=== PATIENT | female | born 1990 | race Caucasian/White ===

== ENCOUNTER 2016-05-20 20:33 | Emergency (ER) | payer BC ==
[~2016-05-20] VITALS: Ht 170.2 cm; Wt 64.1 kg
[2016-05-20 20:35] VITALS: BP 112/85; PULSE 92; RESP 17; TEMP 98.7; O2SAT 100
[2016-05-20 20:49] LABS: BLOOD, URINE LARGE (NEG); GLUCOSE,URINE 100 mg/dL (NEG); KETONE, URINE NEG (NEG)
[2016-05-20 21:06] LABS: NITRITE,URINE POS (NEG); URINE COLOR ORANGE (YELLW/STRAW)
[2016-05-20 21:07] LABS: BACTERIA, URINE OCC /hpf; COMMENT (UR) CULTURE INDICATED; CULTURE IF INDICATED CULTURE INDICATED; SQUAMOUS EPITHELIAL CELL URINE 0-5 /hpf (0-5); WBC, URINE 0-2 /hpf (0-5)
[2016-05-20] MEDS ORDERED: SODIUM CHLOR 0.9% 1000 ML INJ 1,000 ML IV SCH (22:13)
[2016-05-20] MEDS ORDERED: ONDANSETRON HCL 4 MG/2 ML VIAL IVP ONE (22:15)
[2016-05-20] MEDS ORDERED: KETOROLAC TROMETHAMINE 30 MG/ML (IVP) VIAL IVP ONE (22:15)
[2016-05-20] MEDS ORDERED: SODIUM CHLORIDE 0.9% FLUSH 5 ML FLUSH IVF PRN (22:15)
--- NOTE | 2016-05-20 22:20 | PD ---
HPI . Abdominal pain Chief Complaint: Abdominal Pain Time Seen by Provider: 22:06 Travel History International Travel<30 days: No Contact w/Intl Traveler<30days: No Traveled to known affect area: No History of Present Illness HPI Patient presents with a three-hour history of abdominal pain. It is associated with nausea and vomiting. No diarrhea. No fever. No urinary tract symptoms. She reports a brown vaginal discharge. No dyspareunia. I told patient that I was going to need to do a exam. She then reported that she was bleeding. She states that it is time for her usual menstrual cycle. PFSH Past Medical History Bipolar Disorder: Yes Anxiety: Yes Depression: Yes Tetanus Vaccination: Unknown ?: Unknown LMP: "end of March" Dilation and Curettage (D&C): Yes Past Surgical History Gynecologic Surgery: Yes (leep precedure) Social History Alcohol Use: Yes (occ) Tobacco Use: Yes (1/2ppd) Allergies-Medications (Allergen,Severity, Reaction): Coded Allergies: Risperdal (Verified Allergy, Severe, Swelling, 05/20/16) Reported Meds & Prescriptions Reported Meds & Active Scripts Active Reported Ranitidine (Ranitidine HCl) 150 Mg Tab 150 Mg PO DAILY Lamictal (Lamotrigine) 150 Mg Tab 150 Mg PO BID Clonazepam 0.5 Mg Tab 0.5 Mg PO BID PRN Trazodone (Trazodone HCl) 100 Mg Tab 100 Mg PO HS Buspirone (Buspirone HCl) 15 Mg Tab 15 Mg PO BID Abilify (Aripiprazole) 15 Mg Tab 15 Mg PO DAILY Review of Systems Except as stated in HPI: all other systems reviewed are Neg General / Constitutional: No: Fever, Chills Gastrointestinal: Positive: Nausea, Vomiting, Abdominal Pain, No: Diarrhea Genitourinary: Positive: Dysmenorrhea, Vaginal Bleeding, No: Urgency, Frequency, Dysuria, Dyspareunia Physical Exam Narrative GENERAL: Patient is awake and alert and in no acute distress. SKIN: Warm and dry. HEAD: Atraumatic. Normocephalic. EYES: Pupils equal and round. ENT: No nasal bleeding or discharge. Mucous membranes pink and moist. NECK: Trachea midline. CARDIOVASCULAR: Regular rate and rhythm. RESPIRATORY: No accessory muscle use. GASTROINTESTINAL: Abdomen soft. Suprapubic tenderness. No guarding or rebound. Nondistended. MUSCULOSKELETAL: No obvious deformities. No edema. NEUROLOGICAL: Awake and alert. No obvious cranial nerve deficits. Motor grossly within normal limits. Normal speech. PSYCHIATRIC: Appropriate mood and affect; insight and judgment normal. Data Data Last Documented VS Vital Signs Date Time Temp Pulse Resp B/P Pulse Ox O2 Delivery O2 Flow Rate FiO2 05/20/16 23:20 65 16 96/62 99 Room Air 05/20/16 20:35 98.7 Orders Urinalysis - C+S If Indicated (05/20/16 20:40) Ed Urine Pregnancytest Poc (05/20/16 20:40) Urine Culture (05/20/16 20:45) Basic Metabolic Panel (Bmp) (05/20/16 22:13) Complete Blood Count With Diff (05/20/16 22:13) Iv Access Insert/Monitor (05/20/16 22:13) Ondansetron Inj (Zofran Inj) (05/20/16 22:15) Sodium Chlor 0.9% 1000 Ml Inj (Ns 1000 M (05/20/16 22:13) Sodium Chloride 0.9% Flush (Ns Flush) (05/20/16 22:15) Ketorolac Inj (Toradol Inj) (05/20/16 22:15) Prochlorperazine Inj (Compazine Inj) (05/20/16 23:15) Diphenhydramine Inj (Benadryl Inj) (05/20/16 23:15) Labs Laboratory Tests Test 05/20/16 05/20/16 20:45 22:25 Urine Color ORANGE Urine Turbidity SLIGHT Urine pH 6.0 Urine Specific [place] 1.025 Urine Protein 30 mg/dL Urine Glucose (UA) 100 mg/dL Urine Ketones NEG mg/dL Urine Occult Blood LARGE Urine Nitrite POS Urine Bilirubin NEG Urine Leukocyte Esterase NEG Urine RBC 10-14 /hpf Urine WBC 0-2 /hpf Urine Squamous Epithelial 0-5 /hpf Cells Urine Bacteria OCC /hpf Microscopic Urinalysis Comment CULTURE INDICATED White Blood Count 6.5 TH/MM3 Red Blood Count 3.93 MIL/MM3 Hemoglobin 12.6 GM/DL Hematocrit 37.2 % Mean Corpuscular Volume 94.4 FL Mean Corpuscular Hemoglobin 32.1 PG Mean Corpuscular Hemoglobin 34.0 % Concent Red Cell Distribution Width 11.7 % Platelet Count 255 TH/MM3 Mean Platelet Volume 7.1 FL Neutrophils (%) (Auto) 62.7 % Lymphocytes (%) (Auto) 29.2 % Monocytes (%) (Auto) 7.6 % Eosinophils (%) (Auto) 0.1 % Basophils (%) (Auto) 0.4 % Neutrophils # (Auto) 4.1 TH/MM3 Lymphocytes # (Auto) 1.9 TH/MM3 Monocytes # (Auto) 0.5 TH/MM3 Eosinophils # (Auto) 0.0 TH/MM3 Basophils # (Auto) 0.0 TH/MM3 CBC Comment DIFF FINAL Differential Comment Sodium Level 143 MEQ/L Potassium Level 4.0 MEQ/L Chloride Level 106 MEQ/L Carbon Dioxide Level 31.3 MEQ/L Anion Gap 6 MEQ/L Blood Urea Nitrogen 10 MG/DL Creatinine 0.80 MG/DL Estimat Glomerular Filtration 86 ML/MIN Rate Random Glucose 87 MG/DL Calcium Level 8.7 MG/DL MDM Medical Decision Making Medical Screen Exam Complete: Yes Emergency Medical Condition: Yes Differential Diagnosis Differential diagnosis of pelvic pain includes but is not limited to UTI, PID, ectopic , spontaneous AB, constipation, viral illness Narrative Course Patient presents with a three-hour history of abdominal pain with nausea and vomiting. The "brown vaginal discharge" is probably actually menstrual blood. She states that it is time for her menstrual cycle. I suspect that her symptoms are due to dysmenorrhea. CBC is normal. Chemistries are normal. UA shows nitrite and occasional bacteria. Urine test is negative. Patient states that she still feels nauseous. Patient's nausea is resolved post Compazine. Diagnosis Primary Impression: Pelvic pain Additional Impressions: Dysmenorrhea UTI (urinary tract infection) Qualified Code: N30.00 - Acute cystitis without hematuria Patient Instructions: General Instructions, Interstitial Cystitis (ED) Med/Other Pt SpecificInfo: Prescription(s) given Scripts Tramadol (Ultram)50 Mg Tab50 Mg PO Q4H PRN (PAIN) #12 TAB Ref 0 Prov:June Stevens MD 05/20/16 Ibuprofen 800 Mg Bft144 Mg PO Q8H PRN (pain) #15 TAB Ref 0 Prov:June Stevens MD 05/20/16 Sulfamethoxazole-Trimethoprim (Bactrim DS)800-160 Mg Tab1 Tab PO BID #14 TAB Ref 0 Prov:June Stevens MD 05/20/16 Disposition: 01 DISCHARGE HOME Condition: Stable June Stevens MD May 20, 2016 22:19
[2016-05-20 22:33] LABS: AUTOMATED NEUTROPHIL # 4.1 TH/MM3 (1.8-7.7); BASOPHIL % 0.4 % (0.0-2.0); EOSINOPHIL % 0.1 % (0.0-4.0); HEMATOCRIT 37.2 % (35.0-46.0); HEMO FLAGS DIFF FINAL; LYMPH % 29.2 % (9.0-44.0); LYMPHOCYTE # 1.9 TH/MM3 (1.0-4.8); MEAN CELL VOLUME 94.4 FL (80.0-100.0); MEAN CORPUSCULAR HEMOGLOBIN 32.1 PG (27.0-34.0); MONO % 7.6 % (0.0-8.0); NEUT % 62.7 % (16.0-70.0); PLATELET COUNT 255 TH/MM3 (150-450); RED BLOOD COUNT 3.93 MIL/MM3 (4.00-5.30); RED CELL DISTRIBUTION WIDTH 11.7 % (11.6-17.2); WHITE BLOOD COUNT 6.5 TH/MM3 (4.0-11.0)
[2016-05-20 22:46] LABS: BICARBONATE 31.3 MEQ/L (21.0-32.0)
[2016-05-20] MEDS ORDERED: LAMO150 PO (22:58)
[2016-05-20] MEDS ORDERED: TRAZ100T4 PO (22:58)
[2016-05-20] MEDS ORDERED: ABIL15TA2 PO (22:58)
[2016-05-20] MEDS ORDERED: BUSP15TA PO (22:58)
[2016-05-20] MEDS ORDERED: CLON0.5T PO (22:58)
[2016-05-20] MEDS ORDERED: RANI150T PO (22:58)
[2016-05-20] MEDS ORDERED: PROCHLORPERAZINE INJ 10 MG/2 ML VIAL IVS ONE (23:15)
[2016-05-20] MEDS ORDERED: diphenhydrAMINE HCL 50 MG/ML VIAL IV PUSH ONE (23:15)
[2016-05-20 23:20] VITALS: BP_SYST 103; BP_SYST 96; BP_DIAS 59; BP_DIAS 62; PULSE 65; PULSE 67; RESP 16; O2SAT 98; O2SAT 99
[2016-05-20 23:36] VITALS: RESP 16
[2016-05-20] MEDS ORDERED: BACT800T5 PO (23:38)
[2016-05-20] MEDS ORDERED: ULTR50TA5 PO (23:38)
[2016-05-20] MEDS ORDERED: IBUP800T23 PO (23:38)
== END 2016-05-21 00:24 | disposition home or self-care (01) ==
LOC: PHED 20:33
DX: R10.2 Pelvic and perineal pain (principal); N94.6 Dysmenorrhea, unspecified; N39.0 Urinary tract infection, site not specified; R11.2 Nausea with vomiting, unspecified; N89.8 Other specified noninflammatory disorders of vagina; F17.210 Nicotine dependence, cigarettes, uncomplicated
CPT/HCPCS: 80048; 81001; 84703; 85025; 87086; 96361; 96374; 96375; 99284; J0780; J1200; J1885; J2405; J7030

== ENCOUNTER 2016-09-20 14:47 | Inpatient (IN) | payer BC ==
[~2016-09-20] VITALS: Ht 170.2 cm; Wt 73.7 kg
[~2016-09-20 14:47] MED LIST: ABIL15TA2 PO; BACT800T5 PO; BUSP15TA PO; CLON0.5T PO; IBUP800T23 PO; LAMO150 PO; RANI150T PO; TRAZ100T4 PO; ULTR50TA5 PO
[2016-09-20 14:48] VITALS: BP 130/78; PULSE 102; RESP 20; TEMP 97.9; O2SAT 99
--- NOTE | 2016-09-20 15:31 | PD ---
HPI Chief Complaint: Depression Time Seen by Provider: 15:20 Travel History International Travel<30 days: No Contact w/Intl Traveler<30days: No Traveled to known affect area: No History of Present Illness HPI This is a 25-year-old female who presents voluntarily requesting psychiatric evaluation. She reports a history of bipolar disorder, depression, anxiety, OCD. For the past few weeks she has been feeling increasingly depressed. Symptoms were worse today while she was at work. She called her psychiatrist office, was unable to obtain an appointment for 2 days and was encouraged to come here if symptoms were severe. She reports that the only new life changing event has been a new job that she started 3 weeks ago. She denies any suicidal or homicidal ideation. Denies any hallucinations. She is currently prescribed Klonopin, Lexapro, Abilify and BuSpar which she has been using as prescribed. Denies any drug or alcohol use. She has no medical complaints at this time. PFSH Past Medical History Bipolar Disorder: Yes Anxiety: Yes Depression: Yes ?: Not LMP: 2 WEEKS AGO Dilation and Curettage (D&C): Yes Past Surgical History Gynecologic Surgery: Yes (leep precedure) Social History Alcohol Use: Yes (occ) Tobacco Use: Yes (12ppd) Allergies-Medications (Allergen,Severity, Reaction): Coded Allergies: Risperdal (Verified Allergy, Severe, Swelling, 05/20/16) Reported Meds & Prescriptions Reported Meds & Active Scripts Active Ibuprofen 800 Mg Tab 800 Mg PO Q8H PRN Reported Lexapro (Escitalopram Oxalate) 20 Mg Tab 20 Mg PO DAILY Ranitidine (Ranitidine HCl) 150 Mg Tab 150 Mg PO DAILY Lamictal (Lamotrigine) 150 Mg Tab 150 Mg PO BID Clonazepam 0.5 Mg Tab 0.5 Mg PO BID PRN Buspirone (Buspirone HCl) 15 Mg Tab 15 Mg PO BID Abilify (Aripiprazole) 15 Mg Tab 15 Mg PO DAILY Review of Systems Except as stated in HPI: all other systems reviewed are Neg Physical Exam Narrative GENERAL: Pleasant well-developed well-nourished female in no acute distress. SKIN: Warm and dry. HEAD: Atraumatic. Normocephalic. EYES: Pupils equal and round. No scleral icterus. No injection or drainage. ENT: No nasal bleeding or discharge. Mucous membranes pink and moist. NECK: Trachea midline. No JVD. CARDIOVASCULAR: Regular rate and rhythm. No murmur appreciated. RESPIRATORY: No accessory muscle use. Clear to auscultation. Breath sounds equal bilaterally. GASTROINTESTINAL: Abdomen soft, non-tender, nondistended. Hepatic and splenic margins not palpable. MUSCULOSKELETAL: No obvious deformities. No clubbing. No cyanosis. No edema. NEUROLOGICAL: Awake and alert. No obvious cranial nerve deficits. Motor grossly within normal limits. Normal speech. PSYCHIATRIC: Depressed mood. Insight and judgment are intact. Data Data Last Documented VS Vital Signs Date Time Temp Pulse Resp B/P Pulse Ox O2 Delivery O2 Flow Rate FiO2 09/20/16 16:05 96.4 89 18 118/79 98 09/20/16 14:48 Room Air Orders Psych Screen (09/20/16 15:20) Drug Screen, Random Urine (09/20/16 15:20) Ed Urine Pregnancytest Poc (09/20/16 15:55) Diet Regular Basic (09/20/16 Dinner) Labs Laboratory Tests Test 09/20/16 15:40 Urine Opiates Screen NEG Urine Barbiturates Screen NEG Urine Amphetamines Screen NEG Urine Benzodiazepines Screen NEG Urine Cocaine Screen NEG Urine Cannabinoids Screen NEG MDM Medical Decision Making Medical Screen Exam Complete: Yes Emergency Medical Condition: Yes Medical Record Reviewed: Yes Differential Diagnosis Major depressive disorder, adjustment reaction, depressive disorder not otherwise specified, acute psychosis, substance induced mood disorder Narrative Course 25-year-old female presents with increasing depression over the past few weeks. She denies any suicidal or homicidal ideation. Mental health screening discussed with the patient. Psychiatric screen ordered. Urine drug screen, urine test negative. The patient is medically cleared for psychiatric disposition. Diagnosis Primary Impression: Depression Qualified Code: F32.9 - Depression, unspecified depression type Tod Ocampo September 20, 2016 15:31 Tod Ocampo September 20, 2016 15:31
[2016-09-20 15:58] LABS: AMPHETAMINE, URINE NEG (NEG); BARBITURATES, URINE NEG (NEG); COCAINE, URINE NEG (NEG)
[2016-09-20 16:05] VITALS: BP 118/79; PULSE 89; RESP 18; TEMP 96.4; O2SAT 98
[2016-09-20] MEDS ORDERED: LEXA20TA PO (16:41)
[2016-09-20] MEDS ORDERED: clonazePAM 0.5 MG TAB PO ONE (17:45)
[2016-09-20] MEDS: ARIPiprazole 15 MG TAB PO SCH (18:45)
[2016-09-20] MEDS ORDERED: PILL SPLITTER OTHER PRN (19:00)
[2016-09-20] MEDS: ACETAMINOPHEN 500 MG CPLT PO PRN (20:32)
[2016-09-20] MEDS: busPIRone HCL 5 MG TAB PO SCH (21:00)
[2016-09-20] MEDS: lamoTRIgine 100 MG TAB PO SCH (21:00)
[2016-09-20 21:50] VITALS: BP 101/57; PULSE 77; RESP 16; TEMP 97; O2SAT 95
[2016-09-21 02:07] VITALS: BP 97/63; PULSE 103; RESP 16; TEMP 98.5; O2SAT 100
[2016-09-21 06:13] VITALS: BP 99/53; PULSE 79; RESP 17; TEMP 98.6; O2SAT 97
[2016-09-21] MEDS: busPIRone HCL 5 MG TAB PO SCH ×2 (09:00→21:00)
[2016-09-21] MEDS: ARIPiprazole 15 MG TAB PO SCH (09:00)
[2016-09-21] MEDS: lamoTRIgine 100 MG TAB PO SCH ×2 (09:00→21:23)
[2016-09-21 09:40] LABS: AUTOMATED NEUTROPHIL # 3.5 TH/MM3 (1.8-7.7); BASOPHIL % 0.2 % (0.0-2.0); HEMATOCRIT 36.7 % (35.0-46.0); HEMO FLAGS DIFF FINAL; LYMPH % 26.4 % (9.0-44.0); LYMPHOCYTE # 1.4 TH/MM3 (1.0-4.8); MEAN CELL VOLUME 94.2 FL (80.0-100.0); MEAN CORPUSCULAR HEMOGLOBIN 31.5 PG (27.0-34.0); MEAN CORPUSCULAR HGB CONC 33.4 % (32.0-36.0); MONO % 9.2 % (0.0-8.0); NEUT % 64.2 % (16.0-70.0); PLATELET COUNT 181 TH/MM3 (150-450); RED CELL DISTRIBUTION WIDTH 12.3 % (11.6-17.2); WHITE BLOOD COUNT 5.4 TH/MM3 (4.0-11.0)
[2016-09-21 09:51] LABS: BACTERIA, URINE RARE /hpf; BLOOD, URINE NEG (NEG); COMMENT (UR) CULT NOT INDICATED; CULTURE IF INDICATED CULT NOT INDICATED; GLUCOSE,URINE NEG (NEG); KETONE, URINE NEG (NEG); NITRITE,URINE NEG (NEG); SQUAMOUS EPITHELIAL CELL URINE <1 /hpf (0-5); URINE COLOR LIGHT-YELLOW (YELLW/STRAW)
[2016-09-21 09:56] LABS: ALT (GPT) 17 U/L (10-53); ANION GAP 6 MEQ/L (5-15); AST (GOT) 14 U/L (15-37); BICARBONATE 29.6 MEQ/L (21.0-32.0); BLOOD UREA NITROGEN 10 MG/DL (7-18); CHLORIDE 105 MEQ/L (98-107); GLOMERULAR FILTRATION RATE 87 ML/MIN (>89); POTASSIUM 4.5 MEQ/L (3.5-5.1); SODIUM (NA) 141 MEQ/L (136-145)
[2016-09-21 09:59] LABS: ALKALINE PHOSPHATASE 74 U/L (45-117); TOTAL BILIRUBIN ADULT 0.5 MG/DL (0.2-1.0)
[2016-09-21] MEDS ORDERED: MAGNESIUM HYDROXIDE SUSP 30 ML CUP PO PRN (10:45)
[2016-09-21] MEDS ORDERED: BENZTROPINE MESYLATE 2 MG/2 ML VIAL IM PRN (10:45)
[2016-09-21] MEDS ORDERED: BENZTROPINE MESYLATE 1 MG TAB PO PRN (10:45)
[2016-09-21] MEDS ORDERED: ALUMINUM/MAGNESIUM/SIMETH 30 ML CUP PO PRN (10:45)
[2016-09-21 11:17] VITALS: BP 99/53; TEMP 98.6
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
[2016-09-21 14:19] VITALS: BP 93/61; PULSE 73; RESP 18; TEMP 98.6; O2SAT 99
[2016-09-21 18:00] VITALS: BP 103/57; PULSE 82; RESP 18; TEMP 98; O2SAT 97
[2016-09-21] MEDS: diphenhydrAMINE HCL 50 MG CAP PO PRN (21:23)
[2016-09-22 06:25] VITALS: BP 84/53; PULSE 86; RESP 18; TEMP 98.5; O2SAT 99
[2016-09-22] MEDS: busPIRone HCL 5 MG TAB PO SCH ×2 (08:52→20:54)
[2016-09-22] MEDS: FAMOTIDINE 20 MG TAB PO SCH ×2 (08:53→20:54)
[2016-09-22] MEDS: lamoTRIgine 100 MG TAB PO SCH ×2 (08:53→20:54)
[2016-09-22] MEDS: ESCITALOPRAM OXALATE 20 MG TAB PO SCH (08:53)
[2016-09-22] MEDS ORDERED: REMOVE OLD PATCH T-DERMAL SCH (09:00)
[2016-09-22] MEDS ORDERED: NICOTINE 21 MG/24 HR PATCH T-DERMAL SCH (09:00)
[2016-09-22 11:21] LABS: LDL CHOLESTEROL 56 MG/DL (0-99)
[2016-09-22 11:51] LABS: HEMOGLOBIN A1a 1.6 %; HEMOGLOBIN A1b 0.7 %; HEMOGLOBIN Ao 85.2 %; HEMOGLOBIN F 2.5 %; HEMOGLOBIN P3 3.1 %
[2016-09-22] MEDS: diphenhydrAMINE HCL 50 MG CAP PO PRN ×2 (12:15→20:54)
--- NOTE | 2016-09-22 13:55 | HHI.PYPN ---
Subjective Remarks Patient reports her mood is not stable and she needs an increased dose of Abilify. She also reports she is anxious and would like to go up on the Lexapro and the BuSpar. As she is already at max dose of Lexapro, this physician continued it at the present dose. However her BuSpar was increased per her request. Review of Systems Except as stated in HPI: all other systems reviewed are Neg Objective Alert: Yes [place]: Person, Place, Date, Situation Mood: Anxious Affect: Euthymic, Restricted Memory Intact: Immediate, Recent, Remote Hallucinations: Other Delusions: Yes Delusion Type: Other Suicidal: Ideation Homicidal: Ideation Insight/Judgment Impaired Labs Test 09/22/16 10:20 Hemoglobin A1c 4.7 % Triglycerides Level 127 MG/DL Cholesterol Level 156 MG/DL LDL Cholesterol 56 MG/DL HDL Cholesterol 75.0 MG/DL Cholesterol/HDL Ratio 2.08 RATIO Vitals/IOs Vital Signs Date Time Temp Pulse Resp B/P Pulse Ox O2 Delivery O2 Flow Rate FiO2 09/22/16 06:25 98.5 86 18 84/53 99 09/21/16 06:13 Room Air Intake and Output 09/21/16 09/21/16 09/21/16 07:59 15:59 23:59 Intake Total 360 ml Balance 360 ml Assessment & Plan Problem List: (1) Bipolar depression ICD Code: F31.30 Assessment & Plan Estimated LOS: 3 days plan to make changes to medication starting today. If patient tolerates and does well on these medicines she can be discharged by Sunday. Justification for Cont. Inpt. Unstable at lower level of care at this point. Requires medication changes and evaluation for same. Nakul Panda MD September 22, 2016 13:55
[2016-09-22 17:25] VITALS: BP 102/53; PULSE 78; RESP 16; TEMP 97.7; O2SAT 100
[2016-09-22] MEDS: ACETAMINOPHEN 500 MG CPLT PO PRN (19:24)
[2016-09-23 05:58] VITALS: BP 117/57; PULSE 84; RESP 18; TEMP 97.4; O2SAT 98
[2016-09-23] MEDS: lamoTRIgine 100 MG TAB PO SCH ×2 (08:44→21:28)
[2016-09-23] MEDS: FAMOTIDINE 20 MG TAB PO SCH ×2 (08:44→21:33)
[2016-09-23] MEDS: busPIRone HCL 5 MG TAB PO SCH ×2 (08:47→21:30)
[2016-09-23] MEDS: ESCITALOPRAM OXALATE 20 MG TAB PO SCH (08:47)
[2016-09-23] MEDS: clonazePAM 0.5 MG TAB PO PRN (14:12)
--- NOTE | 2016-09-23 17:57 | HHI.PYPN ---
Subjective Remarks Pt seen and discussed with staff. She reports that she is tolerating increased dose of medications without side effects. She reports that mood is better today and lability has decreased. She reports depression has decreased. She is participating in groups. Objective Alert: Yes [place]: Person, Place, Date, Situation Mood: Calm Affect: Restricted Memory Intact: Immediate, Recent, Remote Hallucinations: Other Delusions: Yes Delusion Type: Other Suicidal: Ideation (denies) Homicidal: Ideation (denies) Insight/Judgment fair Vitals/IOs Vital Signs Date Time Temp Pulse Resp B/P Pulse Ox O2 Delivery O2 Flow Rate FiO2 09/23/16 05:58 97.4 84 18 117/57 98 09/21/16 06:13 Room Air Assessment & Plan Problem List: (1) Bipolar depression ICD Code: F31.30 Assessment & Plan Continue current tx plan. Estimated LOS: days Justification for Cont. Inpt. risk of decompensation. Eve Jimenez MD September 23, 2016 17:57
[2016-09-23 18:00] VITALS: BP 98/59; PULSE 73; RESP 18; TEMP 97.7; O2SAT 100
[2016-09-23] MEDS: diphenhydrAMINE HCL 50 MG CAP PO PRN (21:30)
[2016-09-24 05:11] VITALS: BP 104/58; PULSE 67; RESP 16; TEMP 98
[2016-09-24] MEDS: FAMOTIDINE 20 MG TAB PO SCH ×2 (09:18→21:14)
[2016-09-24] MEDS: lamoTRIgine 100 MG TAB PO SCH ×2 (09:18→21:14)
[2016-09-24] MEDS: ESCITALOPRAM OXALATE 20 MG TAB PO SCH (09:18)
[2016-09-24] MEDS: busPIRone HCL 5 MG TAB PO SCH ×2 (09:18→21:13)
--- NOTE | 2016-09-24 17:01 | HHI.PYPN ---
Subjective Remarks Pt seen and discussed with staff. She reports that mood is improving and she is sleeping well. Compliant with medications and tolerating without side effects. No SI/HI. Objective Alert: Yes [place]: Person, Place, Date, Situation Mood: Calm Affect: Restricted Memory Intact: Immediate, Recent, Remote Hallucinations: Other Delusions: Yes Delusion Type: Other Suicidal: Ideation (denies) Homicidal: Ideation (denies) Insight/Judgment poor Vitals/IOs Vital Signs Date Time Temp Pulse Resp B/P Pulse Ox O2 Delivery O2 Flow Rate FiO2 09/24/16 05:11 98.0 67 16 104/58 09/23/16 18:00 100 09/21/16 06:13 Room Air Intake and Output 09/23/16 09/23/16 09/24/16 08:00 16:00 00:00 Intake Total 600 ml 240 ml Balance 600 ml 240 ml Assessment & Plan Problem List: (1) Bipolar depression ICD Code: F31.30 Assessment & Plan Continue current tx plan Estimated LOS: days Justification for Cont. Inpt. risk of decompensation Eve Jimenez MD September 24, 2016 17:01
[2016-09-24] MEDS: diphenhydrAMINE HCL 50 MG CAP PO PRN (21:14)
[2016-09-25] MEDS: clonazePAM 0.5 MG TAB PO PRN (03:18)
[2016-09-25 05:13] VITALS: BP 96/51; PULSE 67; RESP 18; TEMP 98.4; O2SAT 98
[2016-09-25] MEDS: lamoTRIgine 100 MG TAB PO SCH (09:13)
[2016-09-25] MEDS: ESCITALOPRAM OXALATE 20 MG TAB PO SCH (09:13)
[2016-09-25] MEDS: busPIRone HCL 5 MG TAB PO SCH (09:13)
[2016-09-25] MEDS: FAMOTIDINE 20 MG TAB PO SCH (09:13)
[2016-09-25] MEDS ORDERED: BUSP10TA PO (12:49)
[2016-09-25] MEDS ORDERED: ABIL30TA2 PO (12:49)
--- NOTE | 2016-09-25 12:49 | HHI.DS ---
Psychiatry Discharge Summary Inpatient Psychiatric care?: Yes Advance Directive: No Reason Not Provided: Due to Patient Condition Mental Health AdvanceDirective: No Health Care Proxy: No Admission Admission Date September 21, 2016 at 10:32 Admission Diagnosis: (1) Bipolar depression ICD Code: F31.30 Brief History Ms. Lafleur is a 25-year-old female with a history of bipolar disorder and anxiety who presents on a voluntary basis for psychiatric evaluation. Reviewing the electronic medical record, I see no prior psychiatric contact within our system. The patient seen and examined. Chart reviewed. Case discussed with nursing staff who reports that the patient has been acting out in a somewhat personality disordered fashion since presenting to the psychiatric emergency room. For example, the nurse notes that the patient reported to staff that she had endeavored to smother herself with a pillow while she was in the psychiatric emergency room, but she was under constant observation both directly and via video camera I am told and there was no evidence that she had done any such thing. Likewise, the patient at a later point apparently put her finger down her throat in order to induce vomiting for unclear reasons. On my examination this morning, cluster B personality traits are noted. The patient complains of worsening depression over the last month or so without clear trigger. She says that yesterday "out of the blue" she had acute worsening of her depression and the onset of tearfulness. She became "scared something bad was going to happen." She began to entertain suicidal thoughts. She tried to contact her outpatient psychiatrist, but was told that she could not be seen until Sunday and so decided it was the most prudent course of action to come to the emergency room instead. She endorses ongoing vague suicidal ideation. She endorses feelings of increased impulsiveness. Sleep is reportedly fair, although it is disturbed at times by periods of intense panic. I can elicit no hypomanic or manic symptoms. She endorses a history of indistinct "voices" and also reportedly felt that people were following her in the past, but she denies audiovisual hallucinations at this time and I can elicit no current delusional beliefs. The remainder of the psychiatric ROS is negative. The patient is requesting psychiatric admission for stabilization. Tobacco Use In Past 30 Days: 4 or Less Cigarettes/Day Alcohol Use: Never Hospital Course The patient was admitted to a locked, inpatient psychiatric unit. Appropriate precautions were in place throughout patient's hospital stay. Patient was seen and examined daily on the unit by psychiatry and also visited by counselor. Medications were adjusted. Patient tolerated medication changes well without side effects. Patient had improvement in her presenting psychiatric symptomatology. There was no evidence of any suicidality or homicidality on the inpatient unit. Patient remained in good behavioral control and was compliant with medications. Charting indicates that the patient has been sleeping and eating well. On the day of discharge: Patient seen and examined with nursing staff. Chart reviewed. Case discussed with nurse who reports that the patient is "doing great" and has been no behavioral problem on the unit. On my examination today, the patient is in good spirits. She denies any suicidal or homicidal ideation, intent or plan. She feels that her mood is stabilized and I can elicit no ongoing depressive or hypomanic/manic symptoms at this time. She denies any audiovisual hallucinations and I can elicit no delusional beliefs. She denies side effects from medications. She has no physical complaints. Weighing the acute, chronic, and protective factors and based on the available evidence, I commutator inspector to a reasonable degree of medical certainty that the patient is at low imminent risk of harm to self or others from a mental illness as defined under the Gutierrez act and her level of function is adequate for outpatient care. Consequently, the patient does not meet criteria for involuntary psychiatric hospitalization at this time. Given that she is requesting discharge from the inpatient psychiatric unit today and given that she does not meet criteria for involuntary psychiatric hospitalization, I must order her discharge from the inpatient psychiatric unit today. I have recommended that the patient follow-up with outpatient psychiatry. Patient is also to follow-up with primary care. I counseled the patient regarding warning signs for need to return to the psychiatric emergency room as part of a general safety plan. I provided prescriptions for patient's BuSpar and Abilify, and the patient reports that otherwise she has an adequate supply of her psychotropic and other medications. Results Blood Pressure 96 / 51 Vital Signs Date Time Temp Pulse Resp B/P Pulse Ox O2 Delivery O2 Flow Rate FiO2 09/25/16 05:13 98.4 67 18 96/51 98 Laboratory Results Test 09/22/16 10:20 Hemoglobin A1c 4.7 % (4.3-6.0) Triglycerides Level 127 MG/DL (42-150) Cholesterol Level 156 MG/DL (120-200) LDL Cholesterol 56 MG/DL (0-99) HDL Cholesterol 75.0 MG/DL (40.0-60.0) Summary of Procedures None done Imaging None done Pending results at discharge: No Medications # of Antipsychotic meds at D/C: 1 Approp Antipsych med options 1 - Minimum of three failed multiple trials of monotherapy. 2 - Documented plan to taper to monotherapy due to previous use of multiple meds OR cross-taper in progress at D/C. 3 - Documentation of augmentation of Clozapine. 4 - Justification other than those listed in allowable values 1-3, document here : Discharge Discharge Date: September 25, 2016 Discharge Diagnosis: (1) Bipolar disorder Diagnosis: Principal ICD Code: F31.9 Also, cluster B personality traits, chronic. GAF on discharge is 60. Mental Status Exam at Disch Patient is casually dressed. She is well groomed and certainly maintaining basic hygiene. She is awake and alert and oriented 3. No abnormal motor movements noted. Speech is within normal limits for rate, tone and volume. Language and fund of knowledge seemed average. Mood is good and affect is full and reactive. Thought process linear. No loosening of associations. No evident delusional material. Denies audiovisual hallucinations. Denies suicidal or homicidal ideation, intent or plan. Insight and judgment are fair. Pt Condition on Discharge: Stable Discharge Disposition: Discharge Home Discharge Instructions Diet Instructions: As Tolerated, No Restrictions Activities you can perform: Weight Bearing as Titi Scheduled Appointment: as per counselor's notes New Medications: Aripiprazole (Abilify) 30 Mg Tab 30 MG PO DAILY Mental Health Days 15 Ref 1 TAB Buspirone (Buspirone) 10 Mg Tab 20 MG PO BID Mental Health Days 15 Ref 1 TAB Continued Medications: Clonazepam (Clonazepam) 0.5 Mg Tab 0.5 MG PO BID PRN ANXIETY #60 Ref 0 TAB Escitalopram (Lexapro) 20 Mg Tab 20 MG PO DAILY #30 Ref 0 TAB Ibuprofen (Ibuprofen) 800 Mg Tab 800 MG PO Q8H PRN pain #15 Ref 0 TAB Lamotrigine (Lamictal) 150 Mg Tab 150 MG PO BID Control Seizures #60 Ref 0 TAB Ranitidine (Ranitidine) 150 Mg Tab 150 MG PO DAILY Heartburn Management #30 Ref 0 TAB Discontinued Medications: Aripiprazole (Abilify) 15 Mg Tab 15 MG PO DAILY #30 Ref 0 TAB Buspirone (Buspirone) 15 Mg Tab 15 MG PO BID Anxiety Ref 0 TAB Discharge Time <= 30 minutes Discharge/Advance Care Plan Health Problems: (1) Bipolar depression Goals to promote your health * To prevent worsening of your condition and complications * To maintain your health at the optimal level Directions to meet your goals Take your medications as prescribed Follow your dietary instruction Follow activity as directed Keep your appointments as scheduled Take your immunizations and boosters as scheduled If your symptoms worsen call your PCP, if no PCP go to Urgent Care Center or Emergency Room For 20/11 questions related to your inpatient stay or results of tests pending at discharge, please contact Dr. Samson Pinedo at Smoking is Dangerous to Your Health. Avoid second hand smoking Problem Qualifiers (1) Bipolar disorder: Qualified Code: F31.75 - Bipolar disorder, in partial remission, most recent episode depressed Samson Pinedo MD September 25, 2016 12:49
== END 2016-09-25 14:50 | disposition home or self-care (01) | DRG 885 ==
LOC: NEPJ 14:47 → NEDA 09-21 10:32 → H260 09-21 11:02
PROVIDERS: ADMIT Psychiatry & Neurology Psychiatry; ATTEND Psychiatry & Neurology Psychiatry
DX: F31.9 Bipolar disorder, unspecified (principal); F60.89 Other specific personality disorders; Z81.8 Family history of other mental and behavioral disorders; F17.210 Nicotine dependence, cigarettes, uncomplicated
CPT/HCPCS: 80053; 80061; 80307; 81001; 83036; 84703; 85025; 99285; Q0163

== ENCOUNTER 2016-10-02 23:50 | Emergency (ER) | payer BC ==
[~2016-10-02] VITALS: Ht 172.7 cm; Wt 76.0 kg
[~2016-10-02 23:50] MED LIST changes: -ABIL15TA2 PO; +ABIL30TA2 PO; -BACT800T5 PO; +BUSP10TA PO; -BUSP15TA PO; +LEXA20TA PO; -TRAZ100T4 PO; -ULTR50TA5 PO
[2016-10-02 23:53] VITALS: BP 137/73; PULSE 98; RESP 16; TEMP 97.9; O2SAT 100
--- NOTE | 2016-10-03 00:24 | PD ---
HPI Chief Complaint: Psychiatric Symptoms Time Seen by Provider: 00:20 Travel History International Travel<30 days: No Contact w/Intl Traveler<30days: No Traveled to known affect area: No History of Present Illness HPI 26-year-old female that presents to the ED for evaluation of psychiatric evaluation. Patient comes in voluntarily. Patient has a history of depression and psychiatric illness. Patient was just released from the hospital last week. Patient reports that she had an argument with her significant other and her medications were recently changed that she feels that she needs help. She denies any homicidal systolic ideation. No drugs or alcohol. No medical issues. Patient comes here mainly to get help psychiatrically. PFSH Past Medical History Bipolar Disorder: Yes Anxiety: No Depression: Yes Endocrine: No Genitourinary: No Immune Disorder: No Musculoskeletal: No Neurologic: No Psychiatric: Yes (History of BiPolar per pt) Respiratory: No Tetanus Vaccination: Unknown Influenza Vaccination: No ?: Not LMP: 5-16-17 Dilation and Curettage (D&C): Yes Past Surgical History Surgical History: No Previous Surgery Gynecologic Surgery: Yes (leep precedure) Social History Alcohol Use: No Tobacco Use: Yes Substance Use: No Allergies-Medications (Allergen,Severity, Reaction): Coded Allergies: Risperdal (Verified Allergy, Severe, Swelling, 10/02/16) Reported Meds & Prescriptions Reported Meds & Active Scripts Active Buspirone (Buspirone HCl) 10 Mg Tab 20 Mg PO BID 15 Days Abilify (Aripiprazole) 30 Mg Tab 30 Mg PO DAILY 15 Days Ibuprofen 800 Mg Tab 800 Mg PO Q8H PRN Reported Lexapro (Escitalopram Oxalate) 20 Mg Tab 20 Mg PO DAILY Ranitidine (Ranitidine HCl) 150 Mg Tab 150 Mg PO DAILY Lamictal (Lamotrigine) 150 Mg Tab 150 Mg PO BID Clonazepam 0.5 Mg Tab 0.5 Mg PO BID PRN Review of Systems Except as stated in HPI: all other systems reviewed are Neg Physical Exam Narrative GENERAL: SKIN: Warm and dry. HEAD: Atraumatic. Normocephalic. EYES: Pupils equal and round. No scleral icterus. No injection or drainage. ENT: No nasal bleeding or discharge. Mucous membranes pink and moist. Tongue is midline. No uvula deviation. NECK: Trachea midline. No JVD. CARDIOVASCULAR: Regular rate and rhythm. No murmurs, S3, S4. RESPIRATORY: No accessory muscle use. Clear to auscultation. Breath sounds equal bilaterally. GASTROINTESTINAL: Abdomen soft, non-tender, nondistended. Hepatic and splenic margins not palpable. MUSCULOSKELETAL: Extremities without clubbing, cyanosis, or edema. No obvious deformities. NEUROLOGICAL: Awake and alert. No obvious cranial nerve deficits. Motor grossly within normal limits. Five out of 5 muscle strength in the arms and legs. Normal speech. PSYCHIATRIC: Appropriate mood and affect; insight and judgment normal. Data Data Last Documented VS Vital Signs Date Time Temp Pulse Resp B/P Pulse Ox O2 Delivery O2 Flow Rate FiO2 10/02/16 23:53 97.9 98 16 137/73 100 Orders Complete Blood Count With Diff (10/03/16 00:05) Comprehensive Metabolic Panel (10/03/16 00:05) Psych Screen (10/03/16 00:05) Drug Screen, Random Urine (10/03/16 00:05) Alcohol (Ethanol) (10/03/16 00:05) MDM Medical Decision Making Medical Screen Exam Complete: Yes Emergency Medical Condition: Yes Medical Record Reviewed: Yes Differential Diagnosis Depression versus suicidal ideation versus anxiety versus adjustment disorder versus mood disorder versus bipolar disorder versus schizophrenia versus paranoid disorder versus psychosis versus substance abuse versus alcohol abuse versus alcohol induced psychosis versus homicidality addition versus cutting versus personality disorder Narrative Course 26-year-old female that presents to the ED for evaluation of psych. Patient was properly examined and was found to have signs and symptoms consistent with appears to be psychiatric illness. No sign of acute medical distress. Patient his voluntarily. Labs were drawn. Patient was medically cleared. Okay to be seen by psych. Mental health screening was discussed with the patient. Diagnosis Primary Impression: Bipolar disorder Qualified Code: F31.31 - Bipolar affective disorder, currently depressed, mild Peyman Warner Oct 03, 2016 00:23
[2016-10-03] MEDS ORDERED: CYCL1TAB29 PO (00:29)
[2016-10-03 00:37] LABS: BASOPHIL % 0.2 % (0.0-2.0); HEMATOCRIT 35.6 % (35.0-46.0); HEMO FLAGS DIFF FINAL; LYMPH % 16.7 % (9.0-44.0); LYMPHOCYTE # 1.7 TH/MM3 (1.0-4.8); MEAN CELL VOLUME 92.7 FL (80.0-100.0); MEAN CORPUSCULAR HEMOGLOBIN 32.1 PG (27.0-34.0); MEAN CORPUSCULAR HGB CONC 34.6 % (32.0-36.0); MONO % 5.1 % (0.0-8.0); PLATELET COUNT 252 TH/MM3 (150-450); RED BLOOD COUNT 3.84 MIL/MM3 (4.00-5.30); RED CELL DISTRIBUTION WIDTH 12.8 % (11.6-17.2); WHITE BLOOD COUNT 10.3 TH/MM3 (4.0-11.0)
[2016-10-03 00:52] LABS: AMPHETAMINE, URINE NEG (NEG); BARBITURATES, URINE NEG (NEG); COCAINE, URINE NEG (NEG)
[2016-10-03 01:03] LABS: ALT (GPT) 18 U/L (10-53); ANION GAP 5 MEQ/L (5-15); AST (GOT) 16 U/L (15-37); BICARBONATE 28.5 MEQ/L (21.0-32.0); BLOOD UREA NITROGEN 11 MG/DL (7-18); CHLORIDE 106 MEQ/L (98-107); GLOMERULAR FILTRATION RATE 85 ML/MIN (>89); POTASSIUM 3.7 MEQ/L (3.5-5.1); SODIUM (NA) 139 MEQ/L (136-145)
[2016-10-03 01:06] LABS: ALKALINE PHOSPHATASE 79 U/L (45-117); TOTAL BILIRUBIN ADULT 0.4 MG/DL (0.2-1.0)
[2016-10-03 02:17] VITALS: BP 118/74; PULSE 78; RESP 20; TEMP 98.2; O2SAT 98
[2016-10-03 06:00] VITALS: BP 99/56; PULSE 77; RESP 18; O2SAT 97
[2016-10-03 10:19] VITALS: BP 104/57; PULSE 82; RESP 18; O2SAT 96
--- NOTE | 2016-10-03 13:33 | PD ---
History of Present Illness Chief Complaint: Psychiatric Symptoms Time Seen by Provider: 13:00 Travel History International Travel<30 Days: No Contact w/Intl Traveler<30days: No Known affected area: No Legal Status Legal Status: Voluntary History of Present Illness: History of Present Illness HPI 26-year-old female with hx of bipolar disorder and anxiety that presents to the ED on a voluntary basis for evaluation of psychiatric evaluation. Patient was released from the inpatient psychiatric unit at [facility] last week. She reports that she was involved in an argument with her fiancee and she began to fell like she was going to have a panic attack. She then drove herself to the hospital and is requesting admission . States " I don't think my medication is working". She did not contact her outpatient provider prior to coming to the Ed. reports medication compliance. Patient was monitored in J pod and did not present any behavioral concerns. There is no indication of any psychosis and no soni. There is no sucidal or homicdal ideation, intent or plan. She has not experienced any further panic attacks while in J pod. [facility] Past Medical History Bipolar Disorder: Yes Anxiety: No Depression: Yes Endocrine: No Genitourinary: No Immune Disorder: No Musculoskeletal: No Neurologic: No Psychiatric: Yes (History of BiPolar per pt) Respiratory: No Tetanus Vaccination: Unknown Influenza Vaccination: No ?: Not LMP: 5-16-17 Dilation and Curettage (D&C): Yes Past Surgical History Surgical History: No Previous Surgery Gynecologic Surgery: Yes (leep precedure) Psychiatric History Psychiatric History Hx Psychiatric Treatment: Patient reports she has been hospitalized in [facility] 3x. Last psychiatric hosp in [facility] last month Patient is currently seeing an PREPARATION ROOM WORKER from [facility] under the care of Dr. Leon. History of Inpatient Treatment: Yes Guns or firearms in home: No Social History Sing[place] female. Has no children. Lives with her jeramie. 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 Hx Alcohol Use: No Hx Tobacco Use: Yes Hx Substance Use: No Hx of Substance Use Treatment: No Family Psychiatric History Negative Allergies-Medications (Allergen,Severity, Reaction): Coded Allergies: Risperdal (Verified Allergy, Severe, Swelling, 10/03/16) Reported Meds & Prescriptions Reported Meds & Active Scripts Active Buspirone (Buspirone HCl) 10 Mg Tab 20 Mg PO BID 15 Days Abilify (Aripiprazole) 30 Mg Tab 30 Mg PO DAILY 15 Days Ibuprofen 800 Mg Tab 800 Mg PO Q8H PRN Reported Flexeril (Cyclobenzaprine HCl) 10 Mg Tab 10 Mg PO TID Lexapro (Escitalopram Oxalate) 20 Mg Tab 20 Mg PO DAILY Ranitidine (Ranitidine HCl) 150 Mg Tab 150 Mg PO DAILY Lamictal (Lamotrigine) 150 Mg Tab 150 Mg PO BID Clonazepam 0.5 Mg Tab 0.5 Mg PO BID PRN Review of Systems Except as stated in HPI: all other systems reviewed are Neg Exam Alert: Yes [place]: Person (ox4) Mood: Calm Affect: Tearful Speech: Clear, Logical Eye Contact: Normal Memory Intact: Comment (no impairmetn) Hallucinations: Other (negative) Delusions: No Suicidal: Ideation (neagtive) Homicidal: Ideation (negative) Insight/Judgement Fair. not impaired. MDM Medical Decision Making Medical Record Reviewed: Yes Assessment/Plan 26 year old female with hx of bipolar disorder and anxiety who presents to Ed after she experienced a panic attack. Patient at this time presents no criteria for inpatient treatment . I have encouraged her to follow up with her outpatient provider and to continue with current medication. Orders Complete Blood Count With Diff (10/03/16 00:05) Comprehensive Metabolic Panel (10/03/16 00:05) Psych Screen (10/03/16 00:05) Drug Screen, Random Urine (10/03/16 00:05) Alcohol (Ethanol) (10/03/16 00:05) Diet Regular Basic (10/03/16 Breakfast) Diet Regular Basic (10/03/16 Lunch) Results Vital Signs Date Time Temp Pulse Resp B/P Pulse Ox O2 Delivery O2 Flow Rate FiO2 10/03/16 10:19 82 18 104/57 96 Room Air 10/03/16 06:00 77 18 99/56 97 Room Air 10/03/16 02:17 98.2 78 20 118/74 98 Room Air 10/02/16 23:53 97.9 98 16 137/73 100 Laboratory Tests Test 10/03/16 00:15 White Blood Count 10.3 Red Blood Count 3.84 Hemoglobin 12.3 Hematocrit 35.6 Mean Corpuscular Volume 92.7 Mean Corpuscular Hemoglobin 32.1 Mean Corpuscular Hemoglobin 34.6 Concent Red Cell Distribution Width 12.8 Platelet Count 252 Mean Platelet Volume 8.0 Neutrophils (%) (Auto) 78.0 Lymphocytes (%) (Auto) 16.7 Monocytes (%) (Auto) 5.1 Eosinophils (%) (Auto) 0.0 Basophils (%) (Auto) 0.2 Neutrophils # (Auto) 8.0 Lymphocytes # (Auto) 1.7 Monocytes # (Auto) 0.5 Eosinophils # (Auto) 0.0 Basophils # (Auto) 0.0 CBC Comment DIFF FINAL Differential Comment Sodium Level 139 Potassium Level 3.7 Chloride Level 106 Carbon Dioxide Level 28.5 Anion Gap 5 Blood Urea Nitrogen 11 Creatinine 0.80 Estimat Glomerular Filtration 85 Rate Random Glucose 92 Calcium Level 9.0 Total Bilirubin 0.4 Aspartate Amino Transf 16 (AST/SGOT) Alanine Aminotransferase 18 (ALT/SGPT) Alkaline Phosphatase 79 Total Protein 7.1 Albumin 3.4 Urine Opiates Screen NEG Urine Barbiturates Screen NEG Urine Amphetamines Screen NEG Urine Benzodiazepines Screen NEG Urine Cocaine Screen NEG Urine Cannabinoids Screen NEG Ethyl Alcohol Level 4 Diagnosis Primary Impression: Bipolar disorder Psychiatrically Cleared: Yes Referrals: EDWINA LEON M.D. call for appointment Departure Forms: Tests/Procedures Patient Instructions: General Instructions, Bipolar Disorder (ED) Med/ Other Pt Specific Info: No Change to Meds Disposition: 01 DISCHARGE HOME Condition: Stable Problem Qualifiers Primary Impression: Bipolar disorder Qualified Code: F31.31 - Bipolar affective disorder, currently depressed, mild Brii Conner [facility] Oct 03, 2016 13:32
== END 2016-10-03 13:59 | disposition home or self-care (01) ==
LOC: NEPD 23:50 → NEPJ 10-03 13:59
DX: F31.31 Bipolar disorder, current episode depressed, mild (principal); Z79.899 Other long term (current) drug therapy
CPT/HCPCS: 80053; 80307; 85025; 99284

== ENCOUNTER 2016-12-27 15:21 | Inpatient (IN) | payer BC ==
[~2016-12-27] VITALS: Ht 170.2 cm; Wt 83.9 kg
[~2016-12-27 15:21] MED LIST changes: +CYCL1TAB29 PO
--- NOTE | 2016-12-27 15:27 | PD ---
Physical Exam Date Seen by Provider: Dec 27, 2016 Time Seen by Provider: 15:26 Narrative 26 yo female here for voluntary psych eval. here for suicidal ideation but no plan. No other medical issues. Depression. Taking meds. Vitals are stable in triage. Awaiting bed placement. Data Data Orders Orders Complete Blood Count With Diff (12/27/16 15:25) Comprehensive Metabolic Panel (12/27/16 15:25) Urinalysis - C+S If Indicated (12/27/16 15:25) Psych Screen (12/27/16 15:25) Drug Screen, Random Urine (12/27/16 15:25) Alcohol (Ethanol) (12/27/16 15:25) Salicylates (Aspirin) (12/27/16 15:25) Tylenol (Acetaminophen) (12/27/16 15:25) MDM Medical Record Reviewed: Yes Supervised Visit with HARPREET: No Peyman Warner Dec 27, 2016 15:27
[2016-12-27 15:30] VITALS: BP 135/84; PULSE 104; RESP 12; TEMP 98.6; O2SAT 98
[2016-12-27 16:24] LABS: AUTOMATED NEUTROPHIL # 3.3 TH/MM3 (1.8-7.7); BACTERIA, URINE RARE /hpf; BASOPHIL % 0.1 % (0.0-2.0); BLOOD, URINE NEG (NEG); COMMENT (UR) CULT NOT INDICATED; CULTURE IF INDICATED CULT NOT INDICATED; GLUCOSE,URINE NEG (NEG); HEMATOCRIT 38.1 % (35.0-46.0); HEMO FLAGS DIFF FINAL; KETONE, URINE NEG (NEG); LYMPH % 32.5 % (9.0-44.0); LYMPHOCYTE # 1.8 TH/MM3 (1.0-4.8); MEAN CORPUSCULAR HEMOGLOBIN 32.3 PG (27.0-34.0); MONO % 8.8 % (0.0-8.0); NEUT % 58.6 % (16.0-70.0); NITRITE,URINE NEG (NEG); PLATELET COUNT 251 TH/MM3 (150-450); RED BLOOD COUNT 4.01 MIL/MM3 (4.00-5.30); RED CELL DISTRIBUTION WIDTH 12.2 % (11.6-17.2); RENAL EPITHELIAL CELLS <1 /hpf; SQUAMOUS EPITHELIAL CELL URINE 1 /hpf (0-5); URINE COLOR YELLOW (YELLW/STRAW); WHITE BLOOD COUNT 5.7 TH/MM3 (4.0-11.0)
[2016-12-27 16:34] LABS: ANION GAP 10 MEQ/L (5-15)
[2016-12-27 16:37] LABS: ACETAMINOPHEN LESS THAN 2.0 MCG/ML (10.0-30.0); ALKALINE PHOSPHATASE 103 U/L (45-117); ALT (GPT) 17 U/L (10-53); AST (GOT) 13 U/L (15-37); BICARBONATE 26.5 MEQ/L (21.0-32.0); BLOOD UREA NITROGEN 9 MG/DL (7-18); CHLORIDE 105 MEQ/L (98-107); GLOMERULAR FILTRATION RATE 89 ML/MIN (>89); POTASSIUM 3.9 MEQ/L (3.5-5.1); SODIUM (NA) 141 MEQ/L (136-145); TOTAL BILIRUBIN ADULT 0.4 MG/DL (0.2-1.0)
[2016-12-27 16:38] LABS: ALCOHOL LESS THAN 3 MG/DL (0-5)
--- NOTE | 2016-12-27 16:52 | PD ---
HPI Chief Complaint: Psychiatric Symptoms Time Seen by Provider: 16:40 Travel History International Travel<30 days: No Contact w/Intl Traveler<30days: No Traveled to known affect area: No History of Present Illness HPI Patient is a 26-year-old female presenting to the emergency Department voluntarily for psychiatric evaluation. Patient states that she has been depressed for several months and today started experiencing suicidal ideations. She denies any previous suicide attempts. Patient states she has a history of bipolar disorder and her depression gets worse at times. She reports compliance with her antidepressants. She denies any illicit drug use, she denies any visual auditory hallucinations. She does report increased fatigue and sleeping more often. She has no other complaints at this time. PFSH Past Medical History Bipolar Disorder: Yes Anxiety: Yes Depression: Yes Endocrine: No Genitourinary: No Immune Disorder: No Musculoskeletal: No Neurologic: No Respiratory: No Tetanus Vaccination: > 5 Years Influenza Vaccination: No ?: Unknown LMP: 10/2016 Dilation and Curettage (D&C): Yes Past Surgical History Gynecologic Surgery: Yes (leep procedure) Social History Alcohol Use: No Tobacco Use: Yes (1/2PPD) Substance Use: No Allergies-Medications (Allergen,Severity, Reaction): Coded Allergies: risperidone (Unverified Allergy, Severe, Swelling, 12/27/16) Reported Meds & Prescriptions Reported Meds & Active Scripts Active Buspirone (Buspirone HCl) 10 Mg Tab 20 Mg PO BID 15 Days Abilify (Aripiprazole) 30 Mg Tab 30 Mg PO DAILY 15 Days Ibuprofen 800 Mg Tab 800 Mg PO Q8H PRN Reported Lexapro (Escitalopram Oxalate) 20 Mg Tab 20 Mg PO DAILY Ranitidine (Ranitidine HCl) 150 Mg Tab 150 Mg PO DAILY Lamictal (Lamotrigine) 150 Mg Tab 150 Mg PO BID Clonazepam 0.5 Mg Tab 0.5 Mg PO BID PRN Review of Systems Except as stated in HPI: all other systems reviewed are Neg Psychiatric: Positive: Depression, Suicidal Ideations Physical Exam Narrative GENERAL: Well-developed, well-nourished, well kept, alert female. Resting comfortably in no acute distress. SKIN: Warm and dry. HEAD: Atraumatic. Normocephalic. EYES: Pupils equal and round. No scleral icterus. No injection or drainage. ENT: No nasal bleeding or discharge. Mucous membranes pink and moist. NECK: Trachea midline. No JVD. CARDIOVASCULAR: Regular rate and rhythm. RESPIRATORY: No accessory muscle use. Clear to auscultation. Breath sounds equal bilaterally. GASTROINTESTINAL: Abdomen soft, non-tender, nondistended. Hepatic and splenic margins not palpable. MUSCULOSKELETAL: Extremities without clubbing, cyanosis, or edema. No obvious deformities. NEUROLOGICAL: Awake and alert. No obvious cranial nerve deficits. Motor grossly within normal limits. Five out of 5 muscle strength in the arms and legs. Normal speech. PSYCHIATRIC: Depressed mood and flat affect; insight and judgment normal. Data Data Last Documented VS Vital Signs Date Time Temp Pulse Resp B/P (MAP) Pulse Ox O2 Delivery O2 Flow Rate FiO2 12/27/16 15:30 98.6 104 12 135/84 (101) 98 Orders Orders Complete Blood Count With Diff (12/27/16 15:25) Comprehensive Metabolic Panel (12/27/16 15:25) Urinalysis - C+S If Indicated (12/27/16 15:25) Psych Screen (12/27/16 15:25) Drug Screen, Random Urine (12/27/16 15:25) Alcohol (Ethanol) (12/27/16 15:25) Salicylates (Aspirin) (12/27/16 15:25) Tylenol (Acetaminophen) (12/27/16 15:25) Diet Regular Basic (12/27/16 Dinner) Labs Laboratory Tests Test 12/27/16 15:55 White Blood Count 5.7 TH/MM3 Red Blood Count 4.01 MIL/MM3 Hemoglobin 13.0 GM/DL Hematocrit 38.1 % Mean Corpuscular Volume 95.0 FL Mean Corpuscular Hemoglobin 32.3 PG Mean Corpuscular Hemoglobin Concent 34.0 % Red Cell Distribution Width 12.2 % Platelet Count 251 TH/MM3 Mean Platelet Volume 7.8 FL Neutrophils (%) (Auto) 58.6 % Lymphocytes (%) (Auto) 32.5 % Monocytes (%) (Auto) 8.8 % Eosinophils (%) (Auto) 0.0 % Basophils (%) (Auto) 0.1 % Neutrophils # (Auto) 3.3 TH/MM3 Lymphocytes # (Auto) 1.8 TH/MM3 Monocytes # (Auto) 0.5 TH/MM3 Eosinophils # (Auto) 0.0 TH/MM3 Basophils # (Auto) 0.0 TH/MM3 CBC Comment DIFF FINAL Differential Comment Urine Color YELLOW Urine Turbidity CLEAR Urine pH 7.0 Urine Specific [place] 1.017 Urine Protein NEG mg/dL Urine Glucose (UA) NEG mg/dL Urine Ketones NEG mg/dL Urine Occult Blood NEG Urine Nitrite NEG Urine Bilirubin NEG Urine Urobilinogen LESS THAN 2.0 MG/DL Urine Leukocyte Esterase NEG Urine RBC LESS THAN 1 /hpf Urine WBC LESS THAN 1 /hpf Urine Squamous Epithelial Cells 1 /hpf Urine Renal Epithelial Cells <1 /hpf Urine Bacteria RARE /hpf Microscopic Urinalysis Comment CULT NOT INDICATED Blood Urea Nitrogen 9 MG/DL Creatinine 0.77 MG/DL Random Glucose 98 MG/DL Total Protein 7.7 GM/DL Albumin 3.4 GM/DL Calcium Level 8.9 MG/DL Alkaline Phosphatase 103 U/L Aspartate Amino Transf (AST/SGOT) 13 U/L Alanine Aminotransferase (ALT/SGPT) 17 U/L Total Bilirubin 0.4 MG/DL Sodium Level 141 MEQ/L Potassium Level 3.9 MEQ/L Chloride Level 105 MEQ/L Carbon Dioxide Level 26.5 MEQ/L Anion Gap 10 MEQ/L Estimat Glomerular Filtration Rate 89 ML/MIN Salicylates Level 2.3 MG/DL Urine Opiates Screen NEG Acetaminophen Level LESS THAN 2.0 MCG/ML Urine Barbiturates Screen NEG Urine Amphetamines Screen NEG Urine Benzodiazepines Screen NEG Urine Cocaine Screen NEG Urine Cannabinoids Screen NEG Ethyl Alcohol Level LESS THAN 3 MG/DL MDM Medical Decision Making Medical Screen Exam Complete: Yes Emergency Medical Condition: Yes Interpretation(s) Laboratory Tests Test 12/27/16 15:55 White Blood Count 5.7 TH/MM3 Red Blood Count 4.01 MIL/MM3 Hemoglobin 13.0 GM/DL Hematocrit 38.1 % Mean Corpuscular Volume 95.0 FL Mean Corpuscular Hemoglobin 32.3 PG Mean Corpuscular Hemoglobin Concent 34.0 % Red Cell Distribution Width 12.2 % Platelet Count 251 TH/MM3 Mean Platelet Volume 7.8 FL Neutrophils (%) (Auto) 58.6 % Lymphocytes (%) (Auto) 32.5 % Monocytes (%) (Auto) 8.8 % Eosinophils (%) (Auto) 0.0 % Basophils (%) (Auto) 0.1 % Neutrophils # (Auto) 3.3 TH/MM3 Lymphocytes # (Auto) 1.8 TH/MM3 Monocytes # (Auto) 0.5 TH/MM3 Eosinophils # (Auto) 0.0 TH/MM3 Basophils # (Auto) 0.0 TH/MM3 CBC Comment DIFF FINAL Differential Comment Urine Color YELLOW Urine Turbidity CLEAR Urine pH 7.0 Urine Specific [place] 1.017 Urine Protein NEG mg/dL Urine Glucose (UA) NEG mg/dL Urine Ketones NEG mg/dL Urine Occult Blood NEG Urine Nitrite NEG Urine Bilirubin NEG Urine Urobilinogen LESS THAN 2.0 MG/DL Urine Leukocyte Esterase NEG Urine RBC LESS THAN 1 /hpf Urine WBC LESS THAN 1 /hpf Urine Squamous Epithelial Cells 1 /hpf Urine Renal Epithelial Cells <1 /hpf Urine Bacteria RARE /hpf Microscopic Urinalysis Comment CULT NOT INDICATED Blood Urea Nitrogen 9 MG/DL Creatinine 0.77 MG/DL Random Glucose 98 MG/DL Total Protein 7.7 GM/DL Albumin 3.4 GM/DL Calcium Level 8.9 MG/DL Alkaline Phosphatase 103 U/L Aspartate Amino Transf (AST/SGOT) 13 U/L Alanine Aminotransferase (ALT/SGPT) 17 U/L Total Bilirubin 0.4 MG/DL Sodium Level 141 MEQ/L Potassium Level 3.9 MEQ/L Chloride Level 105 MEQ/L Carbon Dioxide Level 26.5 MEQ/L Anion Gap 10 MEQ/L Estimat Glomerular Filtration Rate 89 ML/MIN Salicylates Level 2.3 MG/DL Urine Opiates Screen NEG Acetaminophen Level LESS THAN 2.0 MCG/ML Urine Barbiturates Screen NEG Urine Amphetamines Screen NEG Urine Benzodiazepines Screen NEG Urine Cocaine Screen NEG Urine Cannabinoids Screen NEG Ethyl Alcohol Level LESS THAN 3 MG/DL Vital Signs Date Time Temp Pulse Resp B/P (MAP) Pulse Ox O2 Delivery O2 Flow Rate FiO2 12/27/16 15:30 98.6 104 12 135/84 (101) 98 Differential Diagnosis Mood disorder versus substance abuse versus suicidal ideations versus metabolic abnormality versus other Narrative Course Patient is a 26-year-old female presenting for evaluation for depression and suicidal ideations. Patient with history of bipolar disorder, reports compliance with medications. Patient's vital signs are stable, she has no other complaints at this time. Mental health screening discussed with the patient. Psychiatric screen ordered. Labs reviewed, no acute findings identified. Meal tray has been ordered. Patient is medically clear for psychiatric evaluation at this time. Diagnosis Primary Impression: Medical clearance for psychiatric admission Additional Impression: Suicidal ideations Condition: Stable Sonja Crowley Dec 27, 2016 16:52
[2016-12-27 18:00] VITALS: BP 114/72; PULSE 78; RESP 19; O2SAT 97
[2016-12-27 22:00] VITALS: BP 98/60; PULSE 73; RESP 18; O2SAT 98
[2016-12-28] MEDS ORDERED: IBUPROFEN 800 MG TAB PO PRN (02:00)
[2016-12-28] MEDS ORDERED: clonazePAM 0.5 MG TAB PO PRN (02:00)
[2016-12-28] MEDS ORDERED: LORazepam 2 MG/ML VIAL IM PRN ×2 (02:15→14:00)
[2016-12-28] MEDS ORDERED: LORazepam 1 MG TAB PO PRN (02:15)
[2016-12-28] MEDS ORDERED: ALUMINUM/MAGNESIUM/SIMETH 30 ML CUP PO PRN (02:15)
[2016-12-28] MEDS ORDERED: MAGNESIUM HYDROXIDE SUSP 30 ML CUP PO PRN (02:15)
[2016-12-28] MEDS ORDERED: PILL SPLITTER OTHER PRN (02:15)
[2016-12-28] MEDS ORDERED: ACETAMINOPHEN 325 MG TAB PO PRN (02:15)
[2016-12-28 02:21] VITALS: BP 88/54; PULSE 76; RESP 18; TEMP 98; O2SAT 98
[2016-12-28] MEDS: ARIPiprazole 30 MG TAB PO SCH (08:57)
[2016-12-28] MEDS: busPIRone HCL 10 MG TAB PO SCH ×2 (08:58→21:00)
[2016-12-28] MEDS: lamoTRIgine 100 MG TAB PO SCH ×2 (08:58→21:00)
[2016-12-28] MEDS: ESCITALOPRAM OXALATE 20 MG TAB PO SCH (08:58)
[2016-12-28] MEDS: FAMOTIDINE 20 MG TAB PO SCH (08:58)
[2016-12-28] MEDS: NICOTINE 21 MG/24 HR PATCH T-DERMAL SCH (09:00)
--- NOTE | 2016-12-28 10:42 | HHI.HP ---
Provisional Diagnosis Admission Date Dec 28, 2016 at 00:50 Albers I. 1. Bipolar depression Albers II. Some cluster B personality traits Certification of Person's Competence To Provide Express and Informed Consent I have personally examined Laura Lafleur , a person being served at [facility] on, Dec 28, 2016 10:42. Express and informed consent means consent voluntarily given in writing, by a competent person, after sufficient explanation and disclosure of the subject matter involved to enable the person to make a knowing and willful decision without any element of force, fraud, deceit, duress, or other form of constraint or coercion. This person is 18 years of age or older, is not now known to be incompetent to consent to treatment with a guardian advocate, and does not have a health care surrogate or proxy currently making medical treatment decisions. I have found this person to be one of the following: [X] Competent to provide express and informed consent, as defined above, for voluntary admission to this facility and is competent to provide express and informed consent for treatment. He/she has the consistent capacity to make well reasoned, willful, and knowing decisions concerning his or her medical or mental health treatment. The person fully and consistently understands the purpose of the admission for examination/placement and is fully capable of personally exercising all rights assured [place] [] Incompetent to provide express and informed consent to voluntary admission, and this is incompetent to provide express and informed consent to treatment. The person must be transferred to involuntary status and a petition for a guardian advocate filed with the Circuit Court. [] Refusing to provide express and informed consent to voluntary admission but is competent to provide express and informed consent for treatment. The person must be discharged or transferred to involuntary status. Form shall be completed within 24 hours of a person's arrival at the receiving facility and filed in the clinical record of each person: 1. Admitted on a voluntary basis 2. Permitted to provide express and informed consent to his/her own treatment 3. Allowed to transfer from involuntary to voluntary status 4. Prior to permitting a person to consent to his or her own treatment after having been previously found incompetent to consent to treatment. History of Present Illness Capacity: Has Capacity HPI Ms. Lafleur is a 26-year-old female with a reported history of bipolar illness who presents voluntarily for psychiatric evaluation. She complained of depression and suicidal ideation in the ED. Reviewing the electronic medical record, I note the patient was admitted most recently here under my care in August of this year. Patient seen and examined with counselor and nurse. Chart reviewed. Case discussed with nursing staff. On my examination today, the patient reports that she has been feeling increasingly depressed over the last month or so despite adherence with medications. Main stressors inability to find work. She says that she has been experiencing suicidal ideations since yesterday although she has no concrete plans or intent. She endorses hypersomnia and hyperphagia. No hopelessness or worthlessness. Concentration is poor. Energy is poor. No hypomanic or manic symptoms. Denies audiovisual hallucinations. No delusional material. The remainder of the psychiatric ROS is negative. No physical complaints. Past psychiatric history: The patient reports a history of bipolar illness. She takes Lamictal, Lexapro, Abilify and BuSpar. She follows with Dr. Leon on an outpatient basis. Her most recent psychiatric admission was here as I noted above. She denies a history of suicide attempts. Review of Systems Except as stated in HPI: all other systems reviewed are Neg Past Psych History Psychological trauma history No reported trauma history to me Violence risk - others (6 mos) Lower imminent risk. Denies homicidal ideation. Violence risk - self (6 mos) Concern for elevated risk. Feeling more depressed with recent onset of suicidal ideation. Substance Abuse History Drugs/Alcohol past 12 months Patient admits to occasional alcohol use. No blackouts. Denies any other drug use. Past Family Social History Coded Allergies: risperidone (Unverified Allergy, Severe, Swelling, 12/27/16) Past Medical History See electronic medical record Active Scripts Buspirone (Buspirone) 10 Mg Tab, 20 MG PO BID for Mental Health for 15 Days, TAB 1 Refill Prov:Samson Pinedo MD 09/25/16 Aripiprazole (Abilify) 30 Mg Tab, 30 MG PO DAILY for Mental Health for 15 Days, TAB 1 Refill Prov:Samson Pinedo MD 09/25/16 Ibuprofen (Ibuprofen) 800 Mg Tab, 800 MG PO Q8H Y for pain, #15 TAB 0 Refills Prov:June Stevens MD 05/20/16 Reported Medications Escitalopram (Lexapro) 20 Mg Tab, 20 MG PO DAILY, #30 TAB 0 Refills 09/20/16 Ranitidine (Ranitidine) 150 Mg Tab, 150 MG PO DAILY for Heartburn Management, # 30 TAB 0 Refills 05/20/16 Lamotrigine (Lamictal) 150 Mg Tab, 150 MG PO BID for Control Seizures, #60 TAB 0 Refills 05/20/16 Clonazepam (Clonazepam) 0.5 Mg Tab, 0.5 MG PO BID Y for ANXIETY, #60 TAB 0 Refills 05/20/16 Discontinued Reported Medications Cyclobenzaprine (Flexeril) 10 Mg Tab, 10 MG PO TID for Muscle Spasm, #90 TAB 0 Refills 10/03/16 Current Medications Medications (Trade) Dose Ordered Sig/Estella Route Start Time Stop Time Status Last Admin (Ativan) 1 mg Q6H PRN PO 12/28/16 02:15 (Ativan Inj) 1 mg Q6H PRN IM 12/28/16 02:15 (Tylenol) 650 mg Q4H PRN PO 12/28/16 02:15 (Milk Of Magnesia Liq) 30 ml DAILY PRN PO 12/28/16 02:15 (Mag-Al Plus Susp Liq) 30 ml Q6H PRN PO 12/28/16 02:15 (Habitrol 21 Mg Patch.24 Hr) 1 patch DAILY T-DERMAL 12/28/16 09:00 Miscellaneous Information 1 HS T-DERMAL 12/28/16 21:00 (KlonoPIN) 0.5 mg BID PRN PO 12/28/16 02:00 (LaMICtal) 150 mg BID PO 12/28/16 09:00 12/28/16 08:58 (Pill Splitter) 1 ea UNSCH PRN OTHER 12/28/16 02:15 (Pepcid) 20 mg DAILY PO 12/28/16 09:00 12/28/16 08:58 (Motrin) 800 mg Q8H PRN PO 12/28/16 02:00 (Lexapro) 20 mg DAILY PO 12/28/16 09:00 12/28/16 08:58 (Abilify) 30 mg DAILY PO 12/28/16 09:00 12/28/16 08:57 (Buspar) 20 mg BID PO 12/28/16 09:00 12/28/16 08:58 Family History Family history of bipolar illness. Social History Patient lives with her jorge Hilton and his 3 children. 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 She has recently started college at [place] [employer]. Patient's Strengths (min. 2) Intelligent. Verbally fluent. Physical Exam Physical examination completed by ED provider. On my examination today, the patient appears to be in no acute physical distress. No motoric abnormalities noted. Labs and vitals reviewed: Vital Signs Vital Signs Date Time Temp Pulse Resp B/P (MAP) Pulse Ox O2 Delivery O2 Flow Rate FiO2 12/28/16 02:21 98.0 76 18 88/54 (65) 98 12/27/16 22:00 Room Air Lab Results Item Value Date Time White Blood Count 5.7 TH/MM3 12/27/16 1555 Hemoglobin 13.0 GM/DL 12/27/16 1555 Platelet Count 251 TH/MM3 12/27/16 1555 Sodium Level 141 MEQ/L 12/27/16 1555 Potassium Level 3.9 MEQ/L 12/27/16 1555 Chloride Level 105 MEQ/L 12/27/16 1555 Carbon Dioxide Level 26.5 MEQ/L 12/27/16 1555 Anion Gap 10 MEQ/L 12/27/16 1555 Blood Urea Nitrogen 9 MG/DL 12/27/16 1555 Creatinine 0.77 MG/DL 12/27/16 1555 Aspartate Amino Transf (AST/SGOT) 13 U/L L 12/27/16 1555 Alanine Aminotransferase (ALT/SGPT) 17 U/L 12/27/16 1555 Alkaline Phosphatase 103 U/L 12/27/16 1555 Urine Opiates Screen NEG 12/27/16 1555 Urine Barbiturates Screen NEG 12/27/16 1555 Urine Amphetamines Screen NEG 12/27/16 1555 Urine Benzodiazepines Screen NEG 12/27/16 1555 Urine Cocaine Screen NEG 12/27/16 1555 Urine Cannabinoids Screen NEG 12/27/16 1555 Ethyl Alcohol Level LESS THAN 3 MG/DL 12/27/16 1555 Urinalysis is bland Mental Status Examination Patient is in hospital gown. She is fairly well groomed. She is awake and alert and oriented to person and hospital at least. No delirium. No motor abnormalities. No visible rash. Speech is within normal limits for rate, tone and volume. Language and fund of knowledge approximately average. Focus and concentration somewhat impaired. Memory grossly intact on clinical exam. Mood depressed and affect restricted. Thought process slow but linear. No loosening of associations. No delusions elicited. Denies audiovisual hallucinations. Endorses vague suicidal ideation. No desire to hurt self on inpatient unit. No homicidal ideation. Insight and judgment are fair. Assessment & Plan Problem List: (1) Bipolar depression ICD Codes: F31.30 - Bipolar disorder, current episode depressed, mild or moderate severity, unspecified Status: Acute Assessment & Plan Estimated LOS: days this is a 26-year-old female with psychiatric history as detailed above who presents on a voluntary basis for psychiatric evaluation. On my examination today, the patient reports depressed mood of one month's duration despite adherence with psychotropic medications. She reports recent onset of suicidal ideation. Most prominent depressive symptoms are lack of energy and poor concentration. I think this symptom cluster would respond well to one of several pharmacotherapeutic options including but not limited to augmentation of her current regimen with Wellbutrin or with Cytomel or with addition of a psychostimulant. We also discuss possibly titrating her Lamictal. We discussed the risks and benefits of these strategies and settle on a trial of Wellbutrin. Patient requires psychiatric hospitalization for safety, observation and stabilization. Admit inpatient. Voluntary status. Initiate Wellbutrin SR 100 mg twice daily with plans to titrate to effect. Continue Lamictal 150 mg twice daily. Continue Lexapro 20 mg daily. Continue Abilify 30 mg daily. Continue BuSpar 20 mg twice daily. Ativan as needed for anxiety, Ambien as needed for sleep as the patient reports this is her outpatient PRN hypnotic. Vitals every shift. Counselor to see. Disposition planning. Estimated length of stay: 5-7 days. Discharge Planning Pending stabilization Request HC Surrog/Guard Advoc?: No Samson Pinedo MD Dec 28, 2016 10:42
[2016-12-28] MEDS: buPROPion HCL 100 MG SUSTAINED RELEASE TAB PO SCH (15:00)
[2016-12-28 16:16] VITALS: BP 118/55; PULSE 80; RESP 17; TEMP 98.1; O2SAT 96
[2016-12-28] MEDS: REMOVE OLD NICOTINE PATCH T-DERMAL SCH (21:00)
[2016-12-28] MEDS: ZOLPIDEM TARTRATE 5 MG TAB PO PRN (21:11)
[2016-12-29 06:02] VITALS: BP 109/55; PULSE 79; RESP 18; TEMP 98.3; O2SAT 99
[2016-12-29] MEDS: busPIRone HCL 10 MG TAB PO SCH ×2 (07:44→21:42)
[2016-12-29] MEDS: lamoTRIgine 100 MG TAB PO SCH ×2 (07:45→21:42)
[2016-12-29] MEDS: ESCITALOPRAM OXALATE 20 MG TAB PO SCH (07:45)
[2016-12-29] MEDS: ARIPiprazole 30 MG TAB PO SCH (07:45)
[2016-12-29] MEDS: NICOTINE 21 MG/24 HR PATCH T-DERMAL SCH (07:45)
[2016-12-29] MEDS: FAMOTIDINE 20 MG TAB PO SCH (07:45)
[2016-12-29] MEDS: buPROPion HCL 100 MG SUSTAINED RELEASE TAB PO SCH ×2 (08:49→14:54)
--- NOTE | 2016-12-29 10:02 | HHI.PYPN ---
Subjective Remarks Patient seen and examined with nurse. Chart reviewed. Case discussed with nurse. Per RN, patient endorsing ongoing depressive symptoms. On my exam this morning, patient remains depressed, although she notes that her mood is improving somewhat in the milieu of the inpatient unit. She says that she has been "thinking a lot" about the stressors that brought her into the hospital. No SI/HI. No psychotic symptoms. She is tolerating the Wellbutrin and her other psychotropics well without side effects. No physical complaints. Review of Systems Except as stated in HPI: all other systems reviewed are Neg Objective Alert: Yes [place]: Person, Place Mood: Calm, Depressed Affect: Appropriate Memory Intact: Comment (intact ) Hallucinations: Other (No AVH) Delusions: No Delusion Type: Other (No delusions) Suicidal: Ideation (No SI) Homicidal: Ideation (No HI) Insight/Judgment Fair/poor Remarks No motor abnormalities. TP linear. Speech wnl rate, tone, volume. Grooming and hygiene good. Labs Labs reviewed. Vitals/IOs Vital Signs Date Time Temp Pulse Resp B/P (MAP) Pulse Ox O2 Delivery O2 Flow Rate FiO2 12/29/16 06:02 98.3 79 18 109/55 (73) 99 12/27/16 22:00 Room Air Assessment & Plan Problem List: (1) Bipolar depression ICD Codes: F31.30 - Bipolar disorder, current episode depressed, mild or moderate severity, unspecified Status: Acute Assessment & Plan Continue Wellbutrin SR 100mg BID through the weekend. Continue other psychotropics as ordered. Transfer from 2700 to 2600 unit. Continue other medications and care as ordered. Justification for Cont. Inpt. Risk for decompensation in less restrictive environment. Discharge Planning Possible d/c after weekend. Request HC Surrog/Guard Advoc?: No Samson Pinedo MD Dec 29, 2016 10:02
[2016-12-29 11:43] LABS: HDL CHOLESTEROL 85.4 MG/DL (40.0-60.0); LDL CHOLESTEROL 65 MG/DL (0-99)
[2016-12-29 12:40] LABS: HEMOGLOBIN A1a 1.5 %; HEMOGLOBIN A1b 0.9 %; HEMOGLOBIN Ao 84.6 %; HEMOGLOBIN F 2.6 %; HEMOGLOBIN P3 3.2 %
[2016-12-29 18:15] VITALS: BP 103/55; PULSE 70; RESP 18; TEMP 98.3; O2SAT 97
[2016-12-29] MEDS: LORazepam 1 MG TAB PO PRN (18:17)
[2016-12-29] MEDS: REMOVE OLD NICOTINE PATCH T-DERMAL SCH (21:00)
[2016-12-29] MEDS: ZOLPIDEM TARTRATE 5 MG TAB PO PRN (21:40)
[2016-12-30 06:14] VITALS: BP 107/63; PULSE 91; RESP 16; TEMP 97.6; O2SAT 98
[2016-12-30] MEDS: buPROPion HCL 100 MG SUSTAINED RELEASE TAB PO SCH ×2 (09:00→15:36)
[2016-12-30] MEDS: ESCITALOPRAM OXALATE 20 MG TAB PO SCH (09:22)
[2016-12-30] MEDS: ARIPiprazole 30 MG TAB PO SCH (09:22)
[2016-12-30] MEDS: lamoTRIgine 100 MG TAB PO SCH ×2 (09:22→22:09)
[2016-12-30] MEDS: NICOTINE 21 MG/24 HR PATCH T-DERMAL SCH (09:22)
[2016-12-30] MEDS: FAMOTIDINE 20 MG TAB PO SCH (09:22)
[2016-12-30] MEDS: busPIRone HCL 10 MG TAB PO SCH ×2 (09:22→22:09)
--- NOTE | 2016-12-30 15:26 | HHI.PYPN ---
Subjective Remarks Patient was seen and case discussed with nursing. Patient is pleasant and cooperative with exam. Mood today is a little better, feeling much clearer. Affect is constricted. She describes of depression for the last couple of months. No specific stressors. She continues to speak with her fianc in the phone. Compliant with her medications and tolerating it well. Denies suicidal ideation intent or plan Objective Alert: Yes [place]: Person, Place Mood: Calm, Depressed Affect: Appropriate Memory Intact: Comment (intact ) Hallucinations: Other (No AVH) Delusions: No Delusion Type: Other (No delusions) Suicidal: Ideation (No SI) Homicidal: Ideation (No HI) Insight/Judgment Fair Vitals/IOs Vital Signs Date Time Temp Pulse Resp B/P (MAP) Pulse Ox O2 Delivery O2 Flow Rate FiO2 12/30/16 06:14 97.6 91 16 107/63 (78) 98 12/27/16 22:00 Room Air Assessment & Plan Problem List: (1) Bipolar depression ICD Codes: F31.30 - Bipolar disorder, current episode depressed, mild or moderate severity, unspecified Status: Acute Assessment & Plan Continue current treatment plan Justification for Cont. Inpt. Patient will decompensate in a less restrictive setting Request HC Surrog/Guard Advoc?: No Dagoberto Spann DO Dec 30, 2016 15:26
[2016-12-30] MEDS: LORazepam 1 MG TAB PO PRN (17:46)
[2016-12-30] MEDS: REMOVE OLD NICOTINE PATCH T-DERMAL SCH (21:00)
[2016-12-30] MEDS: ZOLPIDEM TARTRATE 5 MG TAB PO PRN (22:13)
[2016-12-31 06:01] VITALS: BP 103/62; PULSE 98; RESP 16; TEMP 97.9; O2SAT 97
[2016-12-31] MEDS: LORazepam 1 MG TAB PO PRN (06:48)
[2016-12-31] MEDS: FAMOTIDINE 20 MG TAB PO SCH (09:00)
[2016-12-31] MEDS: NICOTINE 21 MG/24 HR PATCH T-DERMAL SCH (09:00)
[2016-12-31] MEDS: busPIRone HCL 10 MG TAB PO SCH ×2 (09:32→20:26)
[2016-12-31] MEDS: ARIPiprazole 30 MG TAB PO SCH (09:33)
[2016-12-31] MEDS: lamoTRIgine 100 MG TAB PO SCH ×2 (09:33→20:30)
[2016-12-31] MEDS: ESCITALOPRAM OXALATE 20 MG TAB PO SCH (09:34)
[2016-12-31] MEDS: buPROPion HCL 100 MG SUSTAINED RELEASE TAB PO SCH ×2 (09:54→15:00)
--- NOTE | 2016-12-31 13:36 | HHI.PYPN ---
Subjective Remarks Patient was seen and case discussed with nursing. Patient is pleasant and cooperative with exam. Constricted affect. Patient is asking about discharge. Sleeping and eating well. Mood is "better." She denies homicidal or suicidal ideation intent or plan Objective Alert: Yes [place]: Person, Place Mood: Calm, Depressed Affect: Appropriate Memory Intact: Comment (intact ) Hallucinations: Other (No AVH) Delusions: No Delusion Type: Other (No delusions) Suicidal: Ideation (No SI) Homicidal: Ideation (No HI) Insight/Judgment Improving Vitals/IOs Vital Signs Date Time Temp Pulse Resp B/P (MAP) Pulse Ox O2 Delivery O2 Flow Rate FiO2 12/31/16 06:01 97.9 98 16 103/62 (76) 97 12/27/16 22:00 Room Air Assessment & Plan Problem List: (1) Bipolar depression ICD Codes: F31.30 - Bipolar disorder, current episode depressed, mild or moderate severity, unspecified Status: Acute Assessment & Plan Continue current treatment plan Justification for Cont. Inpt. Patient would decompensate in a less restrictive setting Request HC Surrog/Guard Advoc?: No Dagoberto Spann DO Dec 31, 2016 13:36
[2016-12-31 20:00] VITALS: BP 99/57; PULSE 88; RESP 16; TEMP 97.8; O2SAT 94
[2016-12-31] MEDS: REMOVE OLD NICOTINE PATCH T-DERMAL SCH (20:31)
[2017-01-01] MEDS: LORazepam 1 MG TAB PO PRN (01:09)
[2017-01-01 06:17] VITALS: BP 107/69; PULSE 83; RESP 16; TEMP 96.8; O2SAT 100
[2017-01-01] MEDS: ESCITALOPRAM OXALATE 20 MG TAB PO SCH (08:46)
[2017-01-01] MEDS: lamoTRIgine 100 MG TAB PO SCH (08:46)
[2017-01-01] MEDS: FAMOTIDINE 20 MG TAB PO SCH (08:47)
[2017-01-01] MEDS: ARIPiprazole 30 MG TAB PO SCH (08:47)
[2017-01-01] MEDS: busPIRone HCL 10 MG TAB PO SCH (08:47)
[2017-01-01] MEDS: buPROPion HCL 100 MG SUSTAINED RELEASE TAB PO SCH (08:53)
[2017-01-01] MEDS: NICOTINE 21 MG/24 HR PATCH T-DERMAL SCH (08:53)
[2017-01-01] MEDS ORDERED: BUPR100CR PO (11:10)
--- NOTE | 2017-01-01 11:11 | HHI.DS ---
Psychiatry Discharge Summary Inpatient Psychiatric care?: Yes Advance Directive: No Reason Not Provided: Patient not receptive Mental Health AdvanceDirective: No Health Care Proxy: No Admission Admission Date Dec 28, 2016 at 00:50 Admission Diagnosis: (1) Bipolar depression ICD Code: F31.30 - Bipolar disorder, current episode depressed, mild or moderate severity, unspecified Brief History Ms. Lafleur is a 26-year-old female with a reported history of bipolar illness who presents voluntarily for psychiatric evaluation. She complained of depression and suicidal ideation in the ED. Reviewing the electronic medical record, I note the patient was admitted most recently here under my care in August of this year. Patient seen and examined with counselor and nurse. Chart reviewed. Case discussed with nursing staff. On my examination today, the patient reports that she has been feeling increasingly depressed over the last month or so despite adherence with medications. Main stressors inability to find work. She says that she has been experiencing suicidal ideations since yesterday although she has no concrete plans or intent. She endorses hypersomnia and hyperphagia. No hopelessness or worthlessness. Concentration is poor. Energy is poor. No hypomanic or manic symptoms. Denies audiovisual hallucinations. No delusional material. The remainder of the psychiatric ROS is negative. No physical complaints. Past psychiatric history: The patient reports a history of bipolar illness. She takes Lamictal, Lexapro, Abilify and BuSpar. She follows with Dr. Leon on an outpatient basis. Her most recent psychiatric admission was here as I noted above. She denies a history of suicide attempts. Tobacco Use In Past 30 Days: 5 or More Cigarettes/Day Alcohol Use: Monthly or Less Hospital Course The patient was admitted to a locked inpatient psychiatric unit. Appropriate precautions in place throughout patient's hospital stay. Patient seen and examined daily on the unit by psychiatry and also visited by counselor. Psychiatric medications were adjusted. Wellbutrin was added to patient's existing regimen. Patient tolerated medication changes well without side effects. Presenting psychiatric symptoms improved during the course of her hospital stay. She was uneventfully transferred from the high acuity to the lower acuity inpatient unit. There was no evidence of any suicidal or homicidal behavior on the inpatient unit. The patient remained in good behavioral control. On the day of discharge: Patient seen and examined with nurse. Chart reviewed. Case discussed with nursing staff. No behavioral issues overnight. On my examination today, the patient tells me she feels much improved and is requesting discharge from the inpatient psychiatric unit. Mood is improved versus admission. No depressive or hypomanic/manic symptoms. Denies any suicidal or homicidal ideation, intent or plan on direct questioning and contracts for safety. No psychotic symptoms. Denies side effects from medications. No physical complaints. Weighing the relevant factors and based on the available evidence, I patrol judge to a reasonable degree of medical certainty that the patient is at low imminent risk of harm to self or others from a mental illness as defined under the Gutierrez act and her level of function is adequate for outpatient care. Patient has maximized benefit from this inpatient psychiatric hospital stay and will be discharged today with psychiatric follow-up as arranged by counselor. Case discussed with counselor as well. Patient is also follow-up with primary care. Patient reminded to return to the psychiatric emergency room for any concerning psychiatric symptoms as part of the general safety plan. Patient reports that she has an adequate supply of all of her medications and needs only a prescription for the new medication, namely Wellbutrin, which I have provided. Results Blood Pressure 107 / 69 Vital Signs Date Time Temp Pulse Resp B/P (MAP) Pulse Ox O2 Delivery O2 Flow Rate FiO2 01/01/17 06:17 96.8 83 16 107/69 (82) 100 Laboratory Results Test 12/29/16 10:59 Cholesterol Level 176 MG/DL (120-200) HDL Cholesterol 85.4 MG/DL (40.0-60.0) Hemoglobin A1c 4.7 % (4.3-6.0) LDL Cholesterol 65 MG/DL (0-99) Triglycerides Level 128 MG/DL (42-150) Summary of Procedures None done Imaging None done Pending results at discharge: No Medications # of Antipsychotic meds at D/C: 1 Approp Antipsych med options 1 - Minimum of three failed multiple trials of monotherapy. 2 - Documented plan to taper to monotherapy due to previous use of multiple meds OR cross-taper in progress at D/C. 3 - Documentation of augmentation of Clozapine. 4 - Justification other than those listed in allowable values 1-3, document here : Discharge Discharge Date: Jan 01, 2017 Discharge Diagnosis: (1) Bipolar disorder Diagnosis: Principal ICD Code: F31.9 - Bipolar disorder, unspecified Status: Acute Mental Status Exam at Disch Patient is casually dressed. Patient is well groomed. Patient is awake and alert and oriented person in hospital at least. No evidence of delirium. No motor abnormalities appreciated. Speech is within normal limits for rate, tone , volume. Language and fund of knowledge average. Focus and concentration intact. Memory grossly intact on clinical exam. Mood is much improved versus admission. Affect is full and reactive. Thought process linear. No delusions elicited. Denies audiovisual hallucinations and does not appear internally stimulated. Denies suicidal or homicidal ideation, intent, or plan and contracts for safety. Insight and judgment seem fair. Pt Condition on Discharge: Stable Discharge Disposition: Discharge Home Discharge Instructions Diet Instructions: As Tolerated, No Restrictions Activities you can perform: Weight Bearing as Titi Scheduled Appointment: as per counselor's notes New Medications: Bupropion HCl ER 12 HR (Wellbutrin SR 12 HR) 100 Mg Tab 100 MG PO BID@0900,1500 for Mental Health for 15 Days, TAB 1 Refill Continued Medications: Aripiprazole (Abilify) 30 Mg Tab 30 MG PO DAILY for Mental Health for 15 Days, TAB 1 Refill Buspirone (Buspirone) 10 Mg Tab 20 MG PO BID for Mental Health for 15 Days, TAB 1 Refill Clonazepam (Clonazepam) 0.5 Mg Tab 0.5 MG PO BID PRN for ANXIETY, #60 TAB 0 Refills Escitalopram (Lexapro) 20 Mg Tab 20 MG PO DAILY, #30 TAB 0 Refills Ibuprofen (Ibuprofen) 800 Mg Tab 800 MG PO Q8H PRN for pain, #15 TAB 0 Refills Lamotrigine (Lamictal) 150 Mg Tab 150 MG PO BID for Control Seizures, #60 TAB 0 Refills Ranitidine (Ranitidine) 150 Mg Tab 150 MG PO DAILY for Heartburn Management, #30 TAB 0 Refills Discharge Time <= 30 minutes Discharge/Advance Care Plan Health Problems: (1) Bipolar depression Goals to promote your health * To prevent worsening of your condition and complications * To maintain your health at the optimal level Directions to meet your goals Take your medications as prescribed Follow your dietary instruction Follow activity as directed Keep your appointments as scheduled Take your immunizations and boosters as scheduled If your symptoms worsen call your PCP, if no PCP go to Urgent Care Center or Emergency Room For 20/11 questions related to your inpatient stay or results of tests pending at discharge, please contact Dr. Samson Pinedo at Smoking is Dangerous to Your Health. Avoid second hand smoking Problem Qualifiers (1) Bipolar disorder: Qualified Codes: F31.70 - Bipolar disorder, currently in remission, most recent episode unspecified Samson Pinedo MD Jan 01, 2017 11:10
== END 2017-01-01 11:55 | disposition home or self-care (01) | DRG 885 ==
LOC: NEPD 15:21 → NEDA 12-28 00:50 → H270 12-28 01:45 → H260 12-29 09:45
PROVIDERS: ADMIT Psychiatry & Neurology Psychiatry; ATTEND Psychiatry & Neurology Psychiatry
DX: F31.31 Bipolar disorder, current episode depressed, mild (principal); R45.851 Suicidal ideations; G47.10 Hypersomnia, unspecified; R63.2 Polyphagia; Z79.899 Other long term (current) drug therapy; F17.200 Nicotine dependence, unspecified, uncomplicated; F41.9 Anxiety disorder, unspecified
CPT/HCPCS: 80053; 80061; 80307; 81001; 83036; 85025; 99285

== ENCOUNTER 2017-06-25 08:44 | Inpatient (IN) | payer BC, OTHER ==
[~2017-06-25] VITALS: Ht 170.2 cm; Wt 94.1 kg
[~2017-06-25 08:44] MED LIST changes: -ABIL30TA2 PO; +ABIL30TA5 PO; +BUPR100CR PO; -CYCL1TAB29 PO; +IBUP1TAB7 PO; -IBUP800T23 PO
[2017-06-25 09:06] VITALS: BP 121/70; PULSE 106; RESP 18; TEMP 99; O2SAT 98
--- NOTE | 2017-06-25 09:44 | PD ---
HPI Chief Complaint: Psychiatric Symptoms Time Seen by Provider: 09:28 Travel History International Travel<30 days: No Contact w/Intl Traveler<30days: No Traveled to known affect area: No History of Present Illness HPI 26-year-old female complains of feeling depressed and suicidal. Patient has history of depression and on medications for that. Patient has been seen in our emergency room in the past and was admitted in the past for depression and bipolar disorder. Patient denies any medical problem. Patient denies any headache. Patient denies any chest pain or shortness of breath. Patient denies abdominal pain. Patient denies any chance of being . Patient requesting psychiatric help today. PFSH Past Medical History Bipolar Disorder: Yes Anxiety: Yes Depression: Yes Cardiovascular Problems: No (per pt) Diminished Hearing: No Endocrine: No Genitourinary: No Headaches: Yes Immune Disorder: No Musculoskeletal: No Neurologic: No Psychiatric: Yes (Hx of treatment for Bipolar Disorder) Respiratory: No Tetanus Vaccination: > 5 Years Influenza Vaccination: No ?: Not LMP: 05/29/17 Dilation and Curettage (D&C): Yes Past Surgical History Gynecologic Surgery: Yes (leep procedure) Social History Alcohol Use: No Tobacco Use: No (quit) Substance Use: No Allergies-Medications (Allergen,Severity, Reaction): Coded Allergies: risperidone (Unverified Allergy, Severe, Swelling, 06/25/17) Reported Meds & Prescriptions Reported Meds & Active Scripts Active Wellbutrin SR 12 HR (Bupropion HCl) 100 Mg Tab 100 Mg PO BID@0900,1500 15 Days Buspirone (Buspirone HCl) 10 Mg Tab 20 Mg PO BID 15 Days Abilify (Aripiprazole) 30 Mg Tab 30 Mg PO DAILY 15 Days Ibuprofen 800 Mg Tab 800 Mg PO Q8H PRN Reported Lexapro (Escitalopram Oxalate) 20 Mg Tab 20 Mg PO DAILY Ranitidine (Ranitidine HCl) 150 Mg Tab 150 Mg PO DAILY Lamictal (Lamotrigine) 150 Mg Tab 150 Mg PO BID Clonazepam 0.5 Mg Tab 0.5 Mg PO BID PRN Review of Systems General / Constitutional: No: Fever Eyes: No: Visual changes HENT: No: Headaches Cardiovascular: No: Chest Pain or Discomfort Respiratory: No: Shortness of Breath Gastrointestinal: No: Abdominal Pain Genitourinary: No: Dysuria Musculoskeletal: No: Pain Skin: No Rash Neurologic: No: Weakness Psychiatric: Positive: Depression, Suicidal Ideations Endocrine: No: Polydipsia Hematologic/Lymphatic: No: Easy Bruising Physical Exam Narrative GENERAL: Well-nourished, well-developed patient. SKIN: Focused skin assessment warm/dry. HEAD: Normocephalic. EYES: No scleral icterus. No injection or drainage. NECK: Supple, trachea midline. No JVD or lymphadenopathy. CARDIOVASCULAR: Regular rate and rhythm without murmurs, gallops, or rubs. RESPIRATORY: Breath sounds equal bilaterally. No accessory muscle use. GASTROINTESTINAL: Abdomen soft, non-tender, nondistended. MUSCULOSKELETAL: No cyanosis, or edema. BACK: Nontender without obvious deformity. No CVA tenderness. Neurologic exam normal. Data Data Last Documented VS Vital Signs Date Time Temp Pulse Resp B/P (MAP) Pulse Ox O2 Delivery O2 Flow Rate FiO2 06/25/17 09:06 99.0 106 18 121/70 (87) 98 Orders Orders Complete Blood Count With Diff (06/25/17 09:38) Comprehensive Metabolic Panel (06/25/17 09:38) Thyroid Stimulating Hormone (06/25/17 09:38) Urinalysis - C+S If Indicated (06/25/17 09:38) Ed Urine Pregnancytest Poc (06/25/17 09:38) Psych Screen (06/25/17 09:38) Drug Screen, Random Urine (06/25/17 09:38) Labs Laboratory Tests Test 06/25/17 09:50 White Blood Count 6.0 TH/MM3 Red Blood Count 3.86 MIL/MM3 Hemoglobin 12.3 GM/DL Hematocrit 35.4 % Mean Corpuscular Volume 91.6 FL Mean Corpuscular Hemoglobin 31.7 PG Mean Corpuscular Hemoglobin Concent 34.6 % Red Cell Distribution Width 13.0 % Platelet Count 254 TH/MM3 Mean Platelet Volume 7.6 FL Neutrophils (%) (Auto) 67.3 % Lymphocytes (%) (Auto) 24.4 % Monocytes (%) (Auto) 8.1 % Eosinophils (%) (Auto) 0.1 % Basophils (%) (Auto) 0.1 % Neutrophils # (Auto) 4.1 TH/MM3 Lymphocytes # (Auto) 1.5 TH/MM3 Monocytes # (Auto) 0.5 TH/MM3 Eosinophils # (Auto) 0.0 TH/MM3 Basophils # (Auto) 0.0 TH/MM3 CBC Comment DIFF FINAL Differential Comment Urine Color YELLOW Urine Turbidity HAZY Urine pH 5.5 Urine Specific [place] 1.024 Urine Protein TRACE mg/dL Urine Glucose (UA) NEG mg/dL Urine Ketones NEG mg/dL Urine Occult Blood TRACE Urine Nitrite NEG Urine Bilirubin NEG Urine Urobilinogen LESS THAN 2.0 MG/DL Urine Leukocyte Esterase SMALL Urine RBC LESS THAN 1 /hpf Urine WBC 2 /hpf Urine Squamous Epithelial Cells 17 /hpf Urine Bacteria OCC /hpf Urine Mucus FEW /lpf Microscopic Urinalysis Comment CULT NOT INDICATED Blood Urea Nitrogen 11 MG/DL Creatinine 0.74 MG/DL Random Glucose 91 MG/DL Total Protein 7.2 GM/DL Albumin 3.1 GM/DL Calcium Level 8.9 MG/DL Alkaline Phosphatase 124 U/L Aspartate Amino Transf (AST/SGOT) 19 U/L Alanine Aminotransferase (ALT/SGPT) 18 U/L Total Bilirubin 0.2 MG/DL Sodium Level 140 MEQ/L Potassium Level 4.1 MEQ/L Chloride Level 108 MEQ/L Carbon Dioxide Level 24.6 MEQ/L Anion Gap 7 MEQ/L Estimat Glomerular Filtration Rate 93 ML/MIN Thyroid Stimulating Hormone 3rd Gen 0.639 uIU/ML Urine Opiates Screen NEG Urine Barbiturates Screen NEG Urine Amphetamines Screen NEG Urine Benzodiazepines Screen NEG Urine Cocaine Screen NEG Urine Cannabinoids Screen NEG MDM Medical Decision Making Medical Screen Exam Complete: Yes Emergency Medical Condition: Yes Interpretation(s) 11:17 AM. CBC within normal limits. CMP within normal limits. Alkaline phosphatase 124. TSH normal. Urine drug screen negative. UA positive for bacteria. Differential Diagnosis Differential diagnosis including depression, suicidal. Narrative Course 26-year-old female with depression and suicidal ideation. 11:18 AM. Patient is medically cleared for psychiatric evaluation. Osiel Treadwell MD Jun 25, 2017 09:44
[2017-06-25 10:06] LABS: AUTOMATED NEUTROPHIL # 4.1 TH/MM3 (1.8-7.7); BASOPHIL % 0.1 % (0.0-2.0); EOSINOPHIL % 0.1 % (0.0-4.0); HEMATOCRIT 35.4 % (35.0-46.0); HEMOGLOBIN 12.3 GM/DL (11.6-15.3); LYMPH % 24.4 % (9.0-44.0); LYMPHOCYTE # 1.5 TH/MM3 (1.0-4.8); MEAN CELL VOLUME 91.6 FL (80.0-100.0); MEAN CORPUSCULAR HEMOGLOBIN 31.7 PG (27.0-34.0); MEAN CORPUSCULAR HGB CONC 34.6 % (32.0-36.0); MEAN PLATELET VOLUME 7.6 FL (7.0-11.0); MONO % 8.1 % (0.0-8.0); MONOCYTE # 0.5 TH/MM3 (0-0.9); NEUT % 67.3 % (16.0-70.0); PLATELET COUNT 254 TH/MM3 (150-450); RED BLOOD COUNT 3.86 MIL/MM3 (4.00-5.30)
[2017-06-25 10:07] LABS: BACTERIA, URINE OCC /hpf; BILIRUBIN, URINE NEG (NEG); BLOOD, URINE TRACE (NEG); GLUCOSE,URINE NEG (NEG); KETONE, URINE NEG (NEG); MUCUS URINE FEW /lpf (OCC); NITRITE,URINE NEG (NEG); PH, URINE 5.5 (5.0-8.5); SQUAMOUS EPITHELIAL CELL URINE 17 /hpf (0-5); URINE COLOR YELLOW (YELLW/STRAW); URINE LEUKOCYTE ESTERASE SMALL (NEG)
[2017-06-25 10:25] LABS: ALT (GPT) 18 U/L (10-53)
[2017-06-25 10:35] LABS: ALKALINE PHOSPHATASE 124 U/L (45-117); TOTAL BILIRUBIN ADULT 0.2 MG/DL (0.2-1.0); TOTAL PROTEIN 7.2 GM/DL (6.4-8.2)
[2017-06-25 10:36] LABS: ALBUMIN 3.1 GM/DL (3.4-5.0); AST (GOT) 19 U/L (15-37); BICARBONATE 24.6 MEQ/L (21.0-32.0); BLOOD UREA NITROGEN 11 MG/DL (7-18); CALCIUM 8.9 MG/DL (8.5-10.1); CHLORIDE 108 MEQ/L (98-107); CREATININE 0.74 MG/DL (0.50-1.00); GLOMERULAR FILTRATION RATE 93 ML/MIN (>89); GLUCOSE,RANDOM 91 MG/DL (74-106); SODIUM (NA) 140 MEQ/L (136-145)
[2017-06-26 00:05] VITALS: BP 107/57; PULSE 75; RESP 16; TEMP 98.3; O2SAT 98
[2017-06-26] MEDS ORDERED: diphenhydrAMINE HCL 50 MG/ML VIAL - HS PRN IM (01:00)
[2017-06-26] MEDS ORDERED: ACETAMINOPHEN 325 MG TAB PO PRN (01:00)
[2017-06-26] MEDS ORDERED: IBUPROFEN 800 MG TAB PO PRN (01:00)
[2017-06-26] MEDS ORDERED: hydrOXYzine HCL 50 MG TAB PO PRN (01:00)
[2017-06-26] MEDS ORDERED: MAGNESIUM HYDROXIDE SUSP 30 ML CUP PO PRN (01:00)
[2017-06-26] MEDS ORDERED: ALUMINUM/MAGNESIUM/SIMETH 30 ML CUP PO PRN (01:00)
[2017-06-26] MEDS ORDERED: diphenhydrAMINE HCL 50 MG CAP - HS PRN PO (01:00)
[2017-06-26 05:16] VITALS: BP 105/52; PULSE 76; RESP 16; TEMP 98.1; O2SAT 97
[2017-06-26] MEDS: ESCITALOPRAM OXALATE 20 MG TAB PO SCH (08:21)
[2017-06-26] MEDS: lamoTRIgine 100 MG TAB PO SCH ×2 (08:22→20:30)
[2017-06-26] MEDS: busPIRone HCL 10 MG TAB PO SCH ×2 (08:23→20:30)
[2017-06-26] MEDS: ARIPiprazole 15 MG TAB PO SCH (08:24)
[2017-06-26] MEDS: FAMOTIDINE 20 MG TAB PO SCH (08:25)
[2017-06-26] MEDS ORDERED: buPROPion HCL 100 MG SUSTAINED RELEASE TAB PO SCH (09:00)
--- NOTE | 2017-06-26 11:07 | HHI.HP ---
Provisional Diagnosis Admission Date Jun 25, 2017 at 23:38 Tennyson I. 1. Bipolar disorder, presently depressed, moderate Rule out component of adjustment reaction Tennyson II. Deferred Certification of Person's Competence To Provide Express and Informed Consent I have personally examined Laura Lafleur , a person being served at [facility] on, Jun 26, 2017 11:07. Express and informed consent means consent voluntarily given in writing, by a competent person, after sufficient explanation and disclosure of the subject matter involved to enable the person to make a knowing and willful decision without any element of force, fraud, deceit, duress, or other form of constraint or coercion. This person is 18 years of age or older, is not now known to be incompetent to consent to treatment with a guardian advocate, and does not have a health care surrogate or proxy currently making medical treatment decisions. I have found this person to be one of the following: [x] Competent to provide express and informed consent, as defined above, for voluntary admission to this facility and is competent to provide express and informed consent for treatment. He/she has the consistent capacity to make well reasoned, willful, and knowing decisions concerning his or her medical or mental health treatment. The person fully and consistently understands the purpose of the admission for examination/placement and is fully capable of personally exercising all rights assured [place] Incompetent to provide express and informed consent to voluntary admission, and this is incompetent to provide express and informed consent to treatment. The person must be transferred to involuntary status and a petition for a guardian advocate filed with the Circuit Court. [] Refusing to provide express and informed consent to voluntary admission but is competent to provide express and informed consent for treatment. The person must be discharged or transferred to involuntary status. Form shall be completed within 24 hours of a person's arrival at the receiving facility and filed in the clinical record of each person: 1. Admitted on a voluntary basis 2. Permitted to provide express and informed consent to his/her own treatment 3. Allowed to transfer from involuntary to voluntary status 4. Prior to permitting a person to consent to his or her own treatment after having been previously found incompetent to consent to treatment. History of Present Illness Capacity: Has Capacity Psych Chief Complaint: Depression, SI HPI Ms. Lafleur is a 26-year-old female with a reported history of bipolar disorder who presented to the emergency department voluntarily for psychiatric evaluation. She was Gutierrez acted by the ED provider. Reviewing the electronic medical record, I note that the patient was admitted here at [facility] most recently in November/December of last year under my care, at which time we added Wellbutrin to her existing regimen. Patient seen and examined with nurse. Chart reviewed. Case discussed with nursing staff. No behavioral issues noted overnight. On my examination today, the patient reports that she has been feeling depressed for about the last month secondary to stressors including new job and wedding planning. She reports hypersomnia and hyperphagia with no particular food craving, in particular no carbohydrate craving. She is somewhat anhedonic and withdrawn. She reports that her depressive symptoms are worse in the morning and at bedtime , and she feels more anxious around mid day. She endorses suicidal ideation without specific plan or intent for about the last week. This is reportedly slowly improving. She does not describe any hypomanic or manic symptoms presently. She denies any audiovisual hallucinations. I can elicit no delusional material. There is no evidence of any impairment in reality construction presently. The remainder of the psychiatric ROS is negative. No physical complaints. Past psychiatric history: The patient has a history of bipolar disorder. She follows with a nurse practitioner in Dr. Leon's office. Her most recent psychiatric admission was here at [facility] and she denies a history of interval suicide attempts. Family history: The patient reports that her mother and maternal grandmother both have bipolar disorder. Her paternal grandmother completed suicide. Her maternal aunt has schizophrenia. Chemical dependency history: The patient denies any abuse of drugs or alcohol. Social history: The patient has been engaged for the last year. Her jorge is reportedly supportive. She has no children of her own, but jorge brings 3 children, ages 2-9, to the relationship. He has visitation of these children every other week, and patient notes that it is somewhat stressful to look after young children. This is particularly true because the patient reports that the jorge's ex- does not like the patient and is trying to turn the children against the patient. 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 She notes that she has never done this sort of work before adding to the stress. She denies any legal history. Denies any access to guns or firearms. Review of Systems Except as stated in HPI: all other systems reviewed are Neg Past Family Social History Coded Allergies: risperidone (Unverified Allergy, Severe, Swelling, 06/25/17) Past Medical History See electronic medical record Active Scripts Bupropion HCl ER 12 HR (Wellbutrin SR 12 HR) 100 Mg Tab, 100 MG PO BID@0900, 1500 for Mental Health for 15 Days, TAB 1 Refill Prov:Samson Pinedo MD 01/01/17 Buspirone (Buspirone) 10 Mg Tab, 20 MG PO BID for Mental Health for 15 Days, TAB 1 Refill Prov:Samson Pinedo MD 09/25/16 Aripiprazole (Abilify) 30 Mg Tab, 30 MG PO DAILY for Mental Health for 15 Days, TAB 1 Refill Prov:Samson Pinedo MD 09/25/16 Ibuprofen (Ibuprofen) 800 Mg Tab, 800 MG PO Q8H Y for pain, #15 TAB 0 Refills Prov:June Stevens MD 05/20/16 Reported Medications Escitalopram (Lexapro) 20 Mg Tab, 20 MG PO DAILY, #30 TAB 0 Refills 09/20/16 Ranitidine (Ranitidine) 150 Mg Tab, 150 MG PO DAILY for Heartburn Management, # 30 TAB 0 Refills 05/20/16 Lamotrigine (Lamictal) 150 Mg Tab, 150 MG PO BID for Control Seizures, #60 TAB 0 Refills 05/20/16 Clonazepam (Clonazepam) 0.5 Mg Tab, 0.5 MG PO BID Y for ANXIETY, #60 TAB 0 Refills 05/20/16 Current Medications Medications (Trade) Dose Ordered Sig/Estella Route Start Time Stop Time Status Last Admin (Atarax) 50 mg Q6H PRN PO 06/26/17 01:00 (Benadryl) 50 mg HS PRN PO 06/26/17 01:00 (Benadryl Inj) 50 mg HS PRN IM 06/26/17 01:00 (Tylenol) 650 mg Q4H PRN PO 06/26/17 01:00 (Milk Of Magnesia Liq) 30 ml DAILY PRN PO 06/26/17 01:00 (Mag-Al Plus Susp Liq) 30 ml Q6H PRN PO 06/26/17 01:00 (LaMICtal) 150 mg BID PO 06/26/17 09:00 06/26/17 08:22 (Pepcid) 20 mg DAILY PO 06/26/17 09:00 06/26/17 08:25 (Motrin) 800 mg Q8H PRN PO 06/26/17 01:00 (Lexapro) 20 mg DAILY PO 06/26/17 09:00 06/26/17 08:21 (Abilify) 30 mg DAILY PO 06/26/17 09:00 06/26/17 08:24 (Buspar) 20 mg BID PO 06/26/17 09:00 06/26/17 08:23 (Wellbutrin Sr 12 Hr) 100 mg BID@0900,1500 PO 06/26/17 09:00 06/26/17 08:22 Patient's Strengths (min. 2) In a monitored setting. Verbally fluent. Physical Exam Physical exam completed by ED provider. On my examination today, patient appears to be in no acute physical distress. No visible rash. No motoric abnormalities noted. Labs and vitals reviewed: Vital Signs Vital Signs Date Time Temp Pulse Resp B/P (MAP) Pulse Ox O2 Delivery O2 Flow Rate FiO2 06/26/17 05:16 98.1 76 16 105/52 (69) 97 Lab Results Item Value Date Time White Blood Count 6.0 TH/MM3 06/25/17 0950 Hemoglobin 12.3 GM/DL 06/25/17 0950 Platelet Count 254 TH/MM3 06/25/17 0950 Sodium Level 140 MEQ/L 06/25/17 0950 Potassium Level 4.1 MEQ/L 06/25/17 0950 Chloride Level 108 MEQ/L H 06/25/17 0950 Carbon Dioxide Level 24.6 MEQ/L 06/25/17 0950 Blood Urea Nitrogen 11 MG/DL 06/25/17 0950 Creatinine 0.74 MG/DL 06/25/17 0950 Estimat Glomerular Filtration Rate 93 ML/MIN 06/25/17 0950 Aspartate Amino Transf (AST/SGOT) 19 U/L 06/25/17 0950 Alanine Aminotransferase (ALT/SGPT) 18 U/L 06/25/17 0950 Alkaline Phosphatase 124 U/L H 06/25/17 0950 Thyroid Stimulating Hormone 3rd Gen 0.639 uIU/ML 06/25/17 0950 Urine Opiates Screen NEG 06/25/17 0950 Urine Barbiturates Screen NEG 06/25/17 0950 Urine Benzodiazepines Screen NEG 06/25/17 0950 Urine Amphetamines Screen NEG 06/25/17 0950 Urine Cocaine Screen NEG 06/25/17 0950 Urine Cannabinoids Screen NEG 06/25/17 0950 Urinalysis results reviewed. ED [id number] test negative. Mental Status Examination Appearance: Appropriate Consciousness: Alert Orientation: x4 Motor Activity: Other (No motor abnormalities noted) Speech: Unremarkable Language: Adequate Fund of Knowledge: Adequate Attention and Concentration: Adequate Memory: Unremarkable Mood: Sad Affect: Sad Thought Process & Associations: Intact, Logical, Linear Thought Content: Appropriate Hallucination Type: None Delusion Type: None Suicidal Ideation: Yes Suicidal Plan: No Suicidal Intention: No Homicidal Ideation: No Homicidal Plan: No Homicidal Intention: No Insight: Adequate Judgment: Adequate Assessment & Plan Problem List: (1) Bipolar disorder ICD Codes: F31.9 - Bipolar disorder, unspecified Status: Acute Assessment & Plan 26-year-old female with psychiatric history as detailed above presently admitted to the inpatient unit under a Gutierrez act. Patient reports about one month of depressive symptoms with more recent onset of suicidal ideation without plan. She contracts for safety on the inpatient unit. There may be a component of adjustment reaction at play as the patient is dealing with several psychosocial stressors. Patient is already on a fairly extensive psychotropic medication regimen with which she is compliant. Although we did briefly discuss the option of significant medication adjustments with the goal of simplification of her regimen, we both agree that given the moderate degree of her symptoms currently a more modest medication adjustment is likely indicated. After extensive discussion of her options in this regard, we settle on titration of her Wellbutrin as a first step. I will plan to admit the patient to the inpatient psychiatric unit for observation and stabilization. Admit inpatient. Voluntary status. Titrate Wellbutrin SR to 150 mg twice daily for mood. Patient denies a history of seizure disorder or eating disorder. Continue Abilify 30 mg daily, Lamictal 150 mg twice daily, Lexapro 20 mg daily and BuSpar 20 mg twice daily as ordered. Atarax as needed for anxiety, Benadryl as needed for sleep. R/B/A for medication changes discussed with patient. Vitals every shift. Counselor to see and obtain collateral. Disposition planning. Estimated length of stay: 5-7 days. Discharge Planning Home with outpatient follow-up Request HC Surrog/Guard Advoc?: No Problem Qualifiers (1) Bipolar disorder: Qualified Codes: F31.32 - Bipolar disorder, current episode depressed, moderate Samson Pinedo MD Jun 26, 2017 11:07
[2017-06-26] MEDS: buPROPion HCL 100 MG SUSTAINED RELEASE TAB PO SCH (15:00)
[2017-06-26 18:34] VITALS: BP 110/60; PULSE 74; RESP 18; TEMP 98.2; O2SAT 97
[2017-06-27 06:29] VITALS: BP 106/58; PULSE 74; RESP 16; TEMP 97.7; O2SAT 98
[2017-06-27 08:42] LABS: BICARBONATE 31.6 MEQ/L (21.0-32.0); BLOOD UREA NITROGEN 14 MG/DL (7-18); CALCIUM 8.8 MG/DL (8.5-10.1); CHLORIDE 103 MEQ/L (98-107); CHOLESTEROL 207 MG/DL (120-200); CREATININE 0.74 MG/DL (0.50-1.00); GLOMERULAR FILTRATION RATE 93 ML/MIN (>89); GLUCOSE,RANDOM 81 MG/DL (74-106); SODIUM (NA) 140 MEQ/L (136-145)
[2017-06-27 08:45] LABS: CHOLESTEROL/ HDL RATIO 2.64 RATIO; HDL CHOLESTEROL 78.2 MG/DL (40.0-60.0); LDL CHOLESTEROL 100 MG/DL (0-99); TRIGLYCERIDES 143 MG/DL (42-150)
[2017-06-27] MEDS: FAMOTIDINE 20 MG TAB PO SCH (09:09)
[2017-06-27] MEDS: busPIRone HCL 10 MG TAB PO SCH ×2 (09:09→21:25)
[2017-06-27] MEDS: ESCITALOPRAM OXALATE 20 MG TAB PO SCH (09:09)
[2017-06-27] MEDS: lamoTRIgine 100 MG TAB PO SCH ×2 (09:09→21:25)
[2017-06-27] MEDS: ARIPiprazole 15 MG TAB PO SCH (09:10)
[2017-06-27] MEDS: buPROPion HCL 100 MG SUSTAINED RELEASE TAB PO SCH ×2 (09:12→15:39)
[2017-06-27 10:38] LABS: HEMOGLOBIN A1C 4.8 % (4.3-6.0)
--- NOTE | 2017-06-27 11:25 | HHI.PYPN ---
Subjective Chief Complaint: Depression, SI Remarks Patient seen and examined with nurse. Chart reviewed. Case discussed with nursing staff. Case discussed with counselor. On my examination today, patient is in better spirits versus yesterday. She denies any suicidal or homicidal ideation. Denies any hopeless or worthless feelings. Denies side effects from medications. No physical complaints. Hopeful for discharge tomorrow. I have asked the counselor to reach out to [facility] for collateral information and to discuss this possible discharge plan. Review of Systems Except as stated in HPI: all other systems reviewed are Neg Mental Status Examination Appearance: Appropriate Consciousness: Alert Orientation: x4 Motor Activity: Other (no abnormal motor movements noted) Speech: Unremarkable Language: Adequate Fund of Knowledge: Adequate Attention and Concentration: Adequate Memory: Unremarkable Mood: Appropriate Affect: Appropriate Thought Process & Associations: Intact, Logical, Linear Thought Content: Appropriate Hallucination Type: None Delusion Type: None Suicidal Ideation: No Suicidal Plan: No Suicidal Intention: No Homicidal Ideation: No Homicidal Plan: No Homicidal Intention: No Insight: Adequate Judgment: Adequate Results Labs Test 06/27/17 06:45 Blood Urea Nitrogen 14 MG/DL Creatinine 0.74 MG/DL Random Glucose 81 MG/DL Calcium Level 8.8 MG/DL Sodium Level 140 MEQ/L Potassium Level 4.3 MEQ/L Chloride Level 103 MEQ/L Carbon Dioxide Level 31.6 MEQ/L Anion Gap 5 MEQ/L Estimat Glomerular Filtration Rate 93 ML/MIN Triglycerides Level 143 MG/DL Cholesterol Level 207 MG/DL LDL Cholesterol 100 MG/DL HDL Cholesterol 78.2 MG/DL Cholesterol/HDL Ratio 2.64 RATIO Labs reviewed. Vitals/IOs Vital Signs Date Time Temp Pulse Resp B/P (MAP) Pulse Ox O2 Delivery O2 Flow Rate FiO2 06/27/17 06:29 97.7 74 16 106/58 (74) 98 Assessment & Plan Problem List: (1) Bipolar disorder ICD Codes: F31.9 - Bipolar disorder, unspecified Status: Acute Assessment & Plan Continue increased dose of Wellbutrin as ordered. Continue other psychotropics as ordered. Continue to monitor on the inpatient unit. Continue other medications include as ordered. Justification for Cont. Inpt. Monitoring for impairment in safety, none noted. Discharge Planning Possible discharge tomorrow. Request HC Surrog/Guard Advoc?: No Problem Qualifiers (1) Bipolar disorder: Qualified Codes: F31.32 - Bipolar disorder, current episode depressed, moderate Samson Pinedo MD Jun 27, 2017 11:25
[2017-06-27 18:19] VITALS: BP 115/69; PULSE 78; RESP 18; TEMP 98.6; O2SAT 99
[2017-06-28 05:33] VITALS: BP 111/57; PULSE 75; RESP 18; TEMP 97.5; O2SAT 98
[2017-06-28] MEDS: busPIRone HCL 10 MG TAB PO SCH (08:20)
[2017-06-28] MEDS: ARIPiprazole 15 MG TAB PO SCH (08:20)
[2017-06-28] MEDS: ESCITALOPRAM OXALATE 20 MG TAB PO SCH (08:20)
[2017-06-28] MEDS: FAMOTIDINE 20 MG TAB PO SCH (08:20)
[2017-06-28] MEDS: buPROPion HCL 100 MG SUSTAINED RELEASE TAB PO SCH (08:20)
[2017-06-28] MEDS: lamoTRIgine 100 MG TAB PO SCH (08:20)
[2017-06-28] MEDS ORDERED: BUPR150CR PO (12:07)
--- NOTE | 2017-06-28 12:08 | HHI.DS ---
Psychiatry Discharge Summary Inpatient Psychiatric care?: Yes Advance Directive: No Reason Not Provided: declined Mental Health AdvanceDirective: No Health Care Proxy: No Admission Admission Date Jun 25, 2017 at 23:38 Admission Diagnosis: (1) Bipolar disorder ICD Code: F31.9 - Bipolar disorder, unspecified Brief History Ms. Lafleur is a 26-year-old female with a reported history of bipolar disorder who presented to the emergency department voluntarily for psychiatric evaluation. She was Gutierrez acted by the ED provider. Reviewing the electronic medical record, I note that the patient was admitted here at [facility] most recently in November/December of last year under my care, at which time we added Wellbutrin to her existing regimen. Patient seen and examined with nurse. Chart reviewed. Case discussed with nursing staff. No behavioral issues noted overnight. On my examination today, the patient reports that she has been feeling depressed for about the last month secondary to stressors including new job and wedding planning. She reports hypersomnia and hyperphagia with no particular food craving, in particular no carbohydrate craving. She is somewhat anhedonic and withdrawn. She reports that her depressive symptoms are worse in the morning and at bedtime , and she feels more anxious around mid day. She endorses suicidal ideation without specific plan or intent for about the last week. This is reportedly slowly improving. She does not describe any hypomanic or manic symptoms presently. She denies any audiovisual hallucinations. I can elicit no delusional material. There is no evidence of any impairment in reality construction presently. The remainder of the psychiatric ROS is negative. No physical complaints. Past psychiatric history: The patient has a history of bipolar disorder. She follows with a nurse practitioner in Dr. Leon's office. Her most recent psychiatric admission was here at [facility] and she denies a history of interval suicide attempts. Family history: The patient reports that her mother and maternal grandmother both have bipolar disorder. Her paternal grandmother completed suicide. Her maternal aunt has schizophrenia. Chemical dependency history: The patient denies any abuse of drugs or alcohol. Social history: The patient has been engaged for the last year. Her fianc is reportedly supportive. She has no children of her own, but jorge brings 3 children, ages 2-9, to the relationship. He has visitation of these children every other week, and patient notes that it is somewhat stressful to look after young children. This is particularly true because the patient reports that the jorge's ex- does not like the patient and is trying to turn the children against the patient. 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 She notes that she has never done this sort of work before adding to the stress. She denies any legal history. Denies any access to guns or firearms. Tobacco Use In Past 30 Days: No Tobacco Past 30 Days Alcohol Use: Never Hospital Course Patient was admitted to a locked, inpatient psychiatric unit. Appropriate precautions were in place throughout patient's hospital stay. Patient was seen and examined on the inpatient unit by psychiatry and also visited by counselor. Psychotropic medications were adjusted. Patient tolerated medication changes well without side effects. Patient had improvement in presenting psychiatric symptomatology during the course of her hospital stay. There was no evidence of any suicidal or homicidal behavior on the inpatient unit. The patient remained in good behavioral control and was medication compliant. Counselor has obtained reassuring collateral from the patient's jorge, and per counselor report he is comfortable with the patient returning home today. On the day of discharge: Patient seen and examined with nurse. Chart reviewed. Case discussed with nursing staff. No behavioral issues noted overnight. Case discussed with counselor. On my examination today, the patient is requesting discharge from the inpatient psychiatric unit today. She denies any suicidal or homicidal ideation, intent or plan on direct questioning and contracts for safety. She is future oriented. Mood is "good" and I can elicit no depressive or hypomanic/manic symptoms. She denies any audiovisual hallucinations. I can elicit no delusional beliefs. There is no evidence of any impairment in reality construction. She denies side effects from medications. She has no physical complaints. Suicide and violence risk assessment on day of discharge both suggest lower imminent risk, and the patient's level of function is adequate for outpatient care. The patient has maximized benefit from this inpatient psychiatric hospital stay and will be discharged home today with psychiatric follow-up as arranged by counselor. Patient is also to follow-up with primary care. I have counseled the patient to return to the psychiatric emergency room for any concerning psychiatric symptoms as part of a general safety plan. I have provided the patient with a prescription for her Wellbutrin , the dose of which has changed, and the patient reports that she has an adequate supply of all of her other medications at home. Results Blood Pressure 111 / 57 Vital Signs Date Time Temp Pulse Resp B/P (MAP) Pulse Ox O2 Delivery O2 Flow Rate FiO2 06/28/17 05:33 97.5 75 18 111/57 (75) 98 Laboratory Tests Test 06/27/17 06:45 Cholesterol Level 207 MG/DL (120-200) LDL Cholesterol 100 MG/DL (0-99) HDL Cholesterol 78.2 MG/DL (40.0-60.0) Laboratory Results Test 06/27/17 06:45 Cholesterol Level 207 MG/DL (120-200) HDL Cholesterol 78.2 MG/DL (40.0-60.0) Hemoglobin A1c 4.8 % (4.3-6.0) LDL Cholesterol 100 MG/DL (0-99) Triglycerides Level 143 MG/DL (42-150) Summary of Procedures None done Imaging None done Pending results at discharge: No Medications # of Antipsychotic meds at D/C: 1 Approp Antipsych med options 1 - Minimum of three failed multiple trials of monotherapy. 2 - Documented plan to taper to monotherapy due to previous use of multiple meds OR cross-taper in progress at D/C. 3 - Documentation of augmentation of Clozapine. 4 - Justification other than those listed in allowable values 1-3, document here : Discharge Discharge Date: Jun 28, 2017 Discharge Diagnosis: (1) Bipolar I, most recent episode depressed, partial remission Diagnosis: Principal ICD Code: F31.75 - Bipolar disorder, in partial remission, most recent episode depressed Pt Condition on Discharge: Stable Discharge Disposition: Discharge Home Discharge Instructions Diet Instructions: As Tolerated, No Restrictions Activities you can perform: Weight Bearing as Titi Scheduled Appointment: [facility] Appointment Date: Jul 02, 2017 Appointment Time: 2:40 p.m. New Medications: Bupropion HCl ER 12 HR (Wellbutrin SR 12 HR) 150 Mg Tab 150 MG PO Q12HR for Mental Health for 15 Days, TAB 1 Refill Continued Medications: Aripiprazole (Abilify) 30 Mg Tab 30 MG PO DAILY for Mental Health for 15 Days, TAB 1 Refill Buspirone (Buspirone) 10 Mg Tab 20 MG PO BID for Mental Health for 15 Days, TAB 1 Refill Clonazepam (Clonazepam) 0.5 Mg Tab 0.5 MG PO BID PRN for ANXIETY, #60 TAB 0 Refills Escitalopram (Lexapro) 20 Mg Tab 20 MG PO DAILY, #30 TAB 0 Refills Ibuprofen (Ibuprofen) 800 Mg Tab 800 MG PO Q8H PRN for pain, #15 TAB 0 Refills Lamotrigine (Lamictal) 150 Mg Tab 150 MG PO BID for Control Seizures, #60 TAB 0 Refills Ranitidine (Ranitidine) 150 Mg Tab 150 MG PO DAILY for Heartburn Management, #30 TAB 0 Refills Discontinued Medications: Bupropion HCl ER 12 HR (Wellbutrin SR 12 HR) 100 Mg Tab 100 MG PO BID@0900,1500 for Mental Health for 15 Days, TAB 1 Refill Discharge Time <= 30 minutes Mental Status Examination Appearance: Appropriate Consciousness: Alert Orientation: x4 Motor Activity: Normal gait, Other (no motor abnormalities noted.) Speech: Unremarkable Language: Adequate Fund of Knowledge: Adequate Attention and Concentration: Adequate Memory: Unremarkable Mood: Appropriate, Good Affect: Appropriate, Euthymic Thought Process & Associations: Intact, Logical, Goal directed, Linear Thought Content: Appropriate Hallucination Type: None Delusion Type: None Suicidal Ideation: No Suicidal Plan: No Suicidal Intention: No Homicidal Ideation: No Homicidal Plan: No Homicidal Intention: No Insight: Adequate Judgment: Adequate Discharge/Advance Care Plan Health Problems: (1) Bipolar disorder Goals to promote your health * To prevent worsening of your condition and complications * To maintain your health at the optimal level Directions to meet your goals Take your medications as prescribed Follow your dietary instruction Follow activity as directed Keep your appointments as scheduled Take your immunizations and boosters as scheduled If your symptoms worsen call your PCP, if no PCP go to Urgent Care Center or Emergency Room For 24 questions related to your inpatient stay or results of tests pending at discharge, please contact Dr. Samson Pinedo at Smoking is Dangerous to Your Health. Avoid second hand smoking Problem Qualifiers (1) Bipolar disorder: Qualified Codes: F31.32 - Bipolar disorder, current episode depressed, moderate Samson Pinedo MD Jun 28, 2017 12:08
== END 2017-06-28 13:30 | disposition home or self-care (01) | DRG 885 ==
LOC: NEPD 08:44 → NEDA 23:38 → H260 06-26 00:04
PROVIDERS: ADMIT Psychiatry & Neurology Psychiatry; ATTEND Psychiatry & Neurology Psychiatry
DX: F31.9 Bipolar disorder, unspecified (principal); R45.851 Suicidal ideations; F41.9 Anxiety disorder, unspecified; G47.10 Hypersomnia, unspecified; R63.2 Polyphagia; Z81.8 Family history of other mental and behavioral disorders; Z79.899 Other long term (current) drug therapy
CPT/HCPCS: 80048; 80053; 80061; 80307; 81001; 83036; 84443; 84703; 85025; Q0163